=== PATIENT | male | born 1975 | race Caucasian/White ===

== ENCOUNTER 2023-06-03 20:09 | Emergency (ER) | payer BC, SELFPAY ==
[2023-06-03] VITALS (31 sets, daily range): BP systolic 100–174; BP diastolic 66–139; PULSE 68–103; RESP 14–26; TEMP 36.9; O2SAT 83–100; BMI 31.7
--- NOTE | 2023-06-03 20:28 | ECG_ITS ---
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
--- NOTE | 2023-06-03 20:29 | XR_ITS ---
The [address] [address] Patient Name: DEMIAN PEREZ MRN: [id number] date: 1975 Sex: M Assigned Patient Location: ER Current Patient Location: ER Accession/Order Number: [id number] Exam Date: 06/03/2023 20:50 Report Date: 06/03/2023 22:27 At the request of: JUAN M FLORES Procedure: XR chest 1V EXAM: XR chest 1V HISTORY: CP COMPARISON: Chest x-ray 09/28/2022 TECHNIQUE: Single frontal view chest x-ray FINDINGS: Large right pneumothorax occupying more than 50% of the right hemithorax with pleural separation of at least 10 cm. Mild leftward mediastinal or tracheal shift. Right lower lung atelectasis/collapse. No discrete acute bony or normality. Cardiac size is unremarkable. XR/XR chest 1V IMPRESSION: Large right pneumothorax with mild leftward mediastinal and tracheal shift. Finding is concerning for tension pneumothorax. Recommend close clinical attention. This important urgent impression finding was communicated to and acknowledged by Jacob Flores at 10:26 PM Eastern time 06/03/2023 by phone. The phone call was made by Nina Coffey. Electronically authenticated by: NINA COFFEY Date: 06/03/2023 22:27
--- NOTE | 2023-06-03 20:29 | ED.GENADUL1 ---
HPI - General Adult General Chief complaint: Chest Pain Stated complaint: CHEST PAIN Time Seen by Provider: 06/03/23 20:19 Source: patient Mode of arrival: Wheelchair History of Present Illness HPI narrative: 48-year-old male presents for back and abdominal pain. It started two hours ago on his right lateral back region. Now it's in the epigastric area. He does not actually have any chest pain. In September of this year he had an myocardial infarction and has two stents. He was sitting in a chair when it started and it's been continuous though waxing and waning. No vomiting or diarrhea. He had eaten some pork loin and potatoes and green beans about an hour before this started. He's never had a problem with his gallbladder. Related Data Allergies Allergy/AdvReac Type Severity Reaction Status Date / Time No Known Drug Allergies Allergy Verified 06/03/23 20:21 Review of Systems ROS Narrative A ten point review of systems is negative except as noted above. PFSH [facility] Medical History (Updated 06/04/23 @ 00:09 by Bright Pate MD) Myocardial infarction ?I21.9 - Acute myocardial infarction, unspecified (ICD-10) Surgical History (Updated 06/03/23 @ 20:36 by Diane Osullivan) H/O heart artery stent ?Z95.5 - Presence of coronary angioplasty implant and graft (ICD-10) Exam Narrative Exam Narrative: Nurses note and vital signs reviewed and patient is not hypoxic. General: The patient appears comfortable. His hips and knees are flexed and he is laying on his left side. Skin: Warm, dry, no pallor noted. There is no rash noted. Head: Normocephalic, atraumatic Eye: Normal conjunctiva, no drainage Ears, Nose, Mouth, and Throat: oral mucosa is moist. Nares patent. Cardiovascular: Regular Rate and Rhythm Respiratory: Patient is in no distress, no accessory muscle use, lungs are clear to auscultation, no wheezing, rales or rhonchi Back: non-tender, no bruise or rash. GI: mild tenderness to palpation in the epigastric area. No mass or distention. Musculoskeletal: The patient has no evidence of calf tenderness, no pitting edema, symmetrical pulses noted bilaterally Neurological: A&O, normal speech Psychiatric: Cooperative Constitutional Vital Signs, click to edit/add: Last Vital Signs Temp 98.4 F 06/03/23 21:37 Pulse 77 06/03/23 23:50 Resp 16 06/03/23 23:50 BP 141/102 H 06/03/23 22:54 Pulse Ox 100 06/03/23 23:50 O2 Del Method Nasal Cannula, Nonrebreather 06/03/23 23:10 O2 Flow Rate 15 06/03/23 23:10 Course Vital Signs Vital signs: Vital Signs Pulse Rate 100 H 06/03/23 20:13 Respiratory Rate 24 06/03/23 20:13 Blood Pressure 174/139 H 06/03/23 20:13 Pulse Oximetry 98 06/03/23 20:13 Oxygen Delivery Method Room Air 06/03/23 20:13 Temperature 98.4 F 06/03/23 21:37 Pulse Rate 77 06/03/23 23:50 Respiratory Rate 16 06/03/23 23:50 Blood Pressure 141/102 H 06/03/23 22:54 Pulse Oximetry 100 06/03/23 23:50 Oxygen Delivery Method Nasal Cannula, Nonrebreather 06/03/23 23:10 Oxygen Delivery Flow Rate 15 06/03/23 23:10 Medical Decision Making MDM Narrative Medical decision making narrative: the patient has right-sided pneumothorax, spontaneous. There is no history of trauma and he does not have chronic obstructive pulmonary disease. The radiologist report suggested tension pneumothorax but clinically he does not have a tension pneumothorax. He had been home with this for about two hours before coming in. Chest tube has been placed and his O2 sat remains normal and his lung appears fully inflated. He will be transferred to [facility] where he is accepted by Dr Kitchen. the patient is stable for transfer and agreeable and this is thoroughly discussed with his girlfriend as well. The cause of the pneumothorax is uncertain. He has not had one previously. Differential Diagnosis Differential Diagnosis: myocardial infarction, pneumothorax, pancreatitis, gallbladder disease Lab Data Lab results reviewed: Yes I reviewed the patient's lab results Labs: Lab Results 06/03/23 06/03/23 Range/Units 20:28 21:58 WBC 7.8 (4.0-11.0) 10^3/uL RBC 5.05 (4.70-6.10) 10^6/uL Hgb 16.1 (14.0-18.0) g/dL Hct 47.7 (42.0-54.0) % MCV 94.5 H (80.0-94.0) fL MCH 31.9 (25.9-34.0) pg MCHC 33.8 (29.9-35.2) g/dL RDW 13.2 (11.0-15.0) % Plt Count 237 (150-450) 10^3/uL MPV 10.4 (9.5-13.5) fL Neut % (Auto) 61.4 (43.0-75.0) % Lymph % (Auto) 26.6 (20.5-60.0) % [place] % (Auto) 8.6 (1.7-12.0) % Eos % (Auto) 2.1 (0.9-7.0) % Baso % (Auto) 0.9 (0.2-2.0) % Neut # (Auto) 4.8 (1.4-6.5) 10^3/uL Lymph # (Auto) 2.1 (1.2-3.8) 10^3/uL [place] # (Auto) 0.7 (0.3-0.8) 10^3/uL Eos # (Auto) 0.2 (0.0-0.7) 10^3/uL Baso # (Auto) 0.1 (0.0-0.1) 10^3/uL Abs Immat Gran (auto) 0.03 (0.00-0.03) 10^3/uL Imm/Tot Granulo (auto) 0.4 (0.0-0.5) % D-Dimer <0.19 (<=0.59) mg/L FEU Sodium 137 (136-145) mmol/L Potassium 4.2 (3.5-5.1) mmol/L Chloride 101 (98-107) mmol/L Carbon Dioxide 31.9 (21.0-32.0) mmol/L Anion Gap 8.3 BUN 15.0 (7.0-18.0) mg/dL Creatinine 1.84 H (0.70-1.30) mg/dL Est GFR ( Amer) 47 L (>=60) Est GFR (Non-Af Amer) 39 L (>=60) BUN/Creatinine Ratio 8.2 Glucose 217 H (74-106) mg/dL Calcium 8.6 (8.5-10.1) mg/dL Total Bilirubin 0.6 (0.2-1.0) mg/dL Direct Bilirubin 0.1 (0.0-0.2) mg/dL AST 12 L (15-37) U/L ALT 27 (16-63) U/L Alkaline Phosphatase 67 (46-116) U/L Troponin I High Sens 12.8 13.7 (4.0-76.1) pg/mL Total Protein 6.6 (6.4-8.2) g/dL Albumin 3.7 (3.4-5.0) g/dL Globulin 2.9 g/dL Albumin/Globulin Ratio 1.3 Amylase 60 (25-115) U/L Lipase 73.0 (16.0-77.0) U/L Imaging Data Chest x-ray: My impression: 2nd chest x-ray my interpretation shows essentially complete inflation of the lung. Radiologist's impression: Procedure: XR chest 1V EXAM: XR chest 1V HISTORY: CP COMPARISON: Chest x-ray 09/28/2022 TECHNIQUE: Single frontal view chest x-ray FINDINGS: Large right pneumothorax occupying more than 50% of the right hemithorax with pleural separation of at least 10 cm. Mild leftward mediastinal or tracheal shift. Right lower lung atelectasis/collapse. No discrete acute bony or normality. Cardiac size is unremarkable. IMPRESSION: Large right pneumothorax with mild leftward mediastinal and tracheal shift. Finding is concerning for tension pneumothorax. Recommend close clinical attention. This important urgent impression finding was communicated to and acknowledged by Jacob Pate at 10:26 PM Eastern time 06/03/2023 by phone. The phone call was made by Nina Coffey. Electronically authenticated by: NINA COFFEY Date: 06/03/2023 22:27 ECG Data Attestation: I personally reviewed and interpreted this ECG as follows: (EKG on my interpretation shows sinus rhythm without acute change in a rate of 95.) Critical Care Time Critical Care Time Critical Care Time: Yes Total Critical Care Time: 35 Attestation: Due to the high probability of sudden and clinically significant deterioration in the patient's condition he/she required the highest level of my preparedness to intervene urgently I provided critical care time including documentation time, medication orders and management, reevaluation, vital sign assessment, ordering and reviewing of lab tests, ordering and reviewing of x-ray studies, and admission orders. Aggregate critical care time is 35 minutes including only time during which I was engaged in work directly related to his/her care and did not include time spent treating other patients simultaneously. Discharge Plan Discharge Chief Complaint: Chest Pain Clinical Impression: Pneumothorax Patient Disposition: [facility] Time of Disposition Decision: 00:09 Discharge Location: [facility] Condition: Good Mode of Transportation: EMS Procedures ED Procedure Instructions Procedures Procedures: The following procedure was performed by me. Right chest tube placed. Local infiltration was carried out with one percent lidocaine to the right midaxillary line. The area was prepped with Betadine ?3 and draped sterilely. The patient was also given IV Versed and morphine which resulted in a good amount of relaxation. a small skin incision was made and then curved hemostats were used to enter the thorax. Large peralta of air then ensued and nine Georgian tube was then placed and secured thoroughly in place. The patient tolerated the procedure well. He did not become hypotensive or hypoxic at any point. Post procedure x-ray shows good lung inflation on my interpretation.
--- NOTE | 2023-06-03 20:33 | PC.NURSE ---
Pt reports pain started in back and radiated to chest. Pt points to epigastric area when asked and denies feeling nauseated. Took 1 nitro at home but this did not help. Pt has cardiac history and cardiac stents, ER DR assessment complete and orders rec'vd
[2023-06-03] MEDS: MORPHINE SULFATE 4 MG/ML VIAL IV ×2 (20:34→23:35)
[2023-06-03 20:48] LABS: Basophils Absolute Auto 0.1 10^3/uL (0.0-0.1); Basophils Percent Auto 0.9 % (0.2-2.0); Eosinophils Absolute Auto 0.2 10^3/uL (0.0-0.7); Eosinophils Percent Auto 2.1 % (0.9-7.0); Hematocrit 47.7 % (42.0-54.0); Hemoglobin 16.1 g/dL (14.0-18.0); Immature Granulocytes Abs Auto 0.03 10^3/uL (0.00-0.03); Immature Granulocytes Pct Auto 0.4 % (0.0-0.5); Lymphocytes Absolute Auto 2.1 10^3/uL (1.2-3.8); Lymphocytes Percent Auto 26.6 % (20.5-60.0); Mean Corpuscular HGB Conc 33.8 g/dL (29.9-35.2); Mean Corpuscular Hemoglobin 31.9 pg (25.9-34.0); Mean Corpuscular Volume 94.5 fL (80.0-94.0); Mean Platelet Volume 10.4 fL (9.5-13.5); Monocytes Absolute Auto 0.7 10^3/uL (0.3-0.8); Monocytes Percent Auto 8.6 % (1.7-12.0); Neutrophils Absolute Auto 4.8 10^3/uL (1.4-6.5); Neutrophils Percent Auto 61.4 % (43.0-75.0); Platelet Count 237 10^3/uL (150-450); Red Blood Count 5.05 10^6/uL (4.70-6.10); Red Cell Distribution Width 13.2 % (11.0-15.0); White Blood Count 7.8 10^3/uL (4.0-11.0)
[2023-06-03 21:03] LABS: Alanine Aminotransferase 27 U/L (16-63); Albumin Globulin Ratio 1.3; Albumin Level 3.7 g/dL (3.4-5.0); Alkaline Phosphatase 67 U/L (46-116); Amylase 60 U/L (25-115); Aspartate Amino Transferase 12 U/L (15-37); Bilirubin Direct 0.1 mg/dL (0.0-0.2); Bilirubin Total 0.6 mg/dL (0.2-1.0); Globulin 2.9 g/dL; Total Protein 6.6 g/dL (6.4-8.2)
[2023-06-03 21:05] LABS: Anion Gap 8.3; BUN Creatinine Ratio 8.2; Calcium 8.6 mg/dL (8.5-10.1); Carbon Dioxide 31.9 mmol/L (21.0-32.0); Chloride 101 mmol/L (98-107); Estimated GFR (African America 47 (>=60); Estimated GFR (Non-African Ame 39 (>=60); Glucose 217 mg/dL (74-106); Potassium 4.2 mmol/L (3.5-5.1); Sodium 137 mmol/L (136-145); Troponin I High Sensitivity 12.8 pg/mL (4.0-76.1)
[2023-06-03 22:07] LABS: D Dimer <0.19 mg/L FEU (<=0.59)
[2023-06-03 22:26] LABS: Troponin I High Sensitivity 13.7 pg/mL (4.0-76.1)
--- NOTE | 2023-06-03 23:21 | XR_ITS ---
[address] [address] Patient Name: DEMIAN PEREZ MRN: [id number] date: 1975 Sex: M Assigned Patient Location: ER Current Patient Location: ED.MAIN Accession/Order Number: [id number] Exam Date: 06/03/2023 23:20 Report Date: 06/04/2023 01:14 At the request of: JUAN M FLORES Procedure: XR chest 1V EXAM: XR chest 1V HISTORY: post chest tube COMPARISON: Chest x-ray 06/03/2023 TECHNIQUE: Single frontal view chest x-ray FINDINGS: Interval placement right chest tube distal tip at the right apical region. Marked interval improvement with the previously seen right pneumothorax barely perceptible on current exam. Tiny trace right apical pneumothorax less than 3 mm pleural separation. No mediastinal or tracheal shift. No lung consolidation, large pleural effusions, or acute bony abnormality. Cardiac size is unremarkable. XR/XR chest 1V IMPRESSION: Interval placement right chest tube distal tip at the right apical region. Marked interval improvement. The previously seen right pneumothorax is barely perceptible on current exam. No mediastinal or tracheal shift. Electronically authenticated by: NINA LOPEZ Date: 06/04/2023 01:14
--- NOTE | 2023-06-03 23:47 | PC.NURSE ---
Pt moved to room 5 for chest tube placement Dr. Herlinda nicholson right chest tube attached to a Thoraseal vent Per Dr. Pate set to 20 on water suction Pt very anxious at time of set up Pt given 4 of versed initially After initial cut by Dr. Pate pt still talking and moving Several nurses were at bedside, this nurse, Tianna RN, and Britany RN paint supervisor as well as Maegan RN and Marleny RN were in and out bringing medications as ordered by Dr. Pate Pt given 4 more of versed after numerous attempts to calm pt down and encouraging him to stop moving his extremities During insertion pt still awake, alert, talking and moving though he was repeatedly directed to stop movement and talking Emotional support provided to pt Another 2 of Versed given per Dr. Pate at bedside Pt still moving and talking, another 2 of Versed given followed by 4 of Morphine and zofran Procedure complete, Chest tubing attached to bed sheet and the Thoraseal vent secured to bedside Pt has remained A&O, GCS 15 vitals have remained stable, pt placed on NRB 15L to assist in relaxing him Another 4 of Morphine given Pt still complaining of extreme pain and rolling in bed This nurse, Britany RN and pt's remain at bedside
[2023-06-04] VITALS: PULSE 99; RESP 19; O2SAT 100
[2023-06-04] MEDS: MIDAZOLAM HCL 5 MG/ML VIAL 10 MG IV
[2023-06-04] MEDS: ONDANSETRON PF 4 MG/2 ML VIAL IV (00:01)
[2023-06-04 00:10] VITALS: PULSE 89; RESP 20; O2SAT 96
[2023-06-04 00:20] VITALS: PULSE 87; RESP 19; O2SAT 92
[2023-06-04 00:28] VITALS: BP 133/78; PULSE 81; RESP 16
[2023-06-04 00:30] VITALS: PULSE 78; RESP 16; O2SAT 100
[2023-06-04] MEDS: HYDROMORPHONE HCL 2 MG/ML VIAL 1 MG IV (00:30)
== END 2023-06-04 01:19 | disposition short-term general hospital (02) ==
PROVIDERS: Emergency Provider Emergency Medicine; PCP Internal Medicine
DX: J93.9 Pneumothorax, unspecified (principal); Z95.5 Presence of coronary angioplasty implant and graft; I25.2 Old myocardial infarction
CPT/HCPCS: 32551; 36415; 71045; 80048; 80076; 82150; 83690; 84484; 85025; 85378; 93005; 96374; 96375; 96376; 99291; J1170

== ENCOUNTER 2023-06-12 16:40 | Outpatient (OUT) | payer BC, SELFPAY ==
--- NOTE | 2023-06-12 | XR_ITS ---
The [address] [address] Patient Name: DEMIAN PEREZ MRN: [id number] date: 1975 Sex: M Assigned Patient Location: [facility] Current Patient Location: [facility] Accession/Order Number: [id number] Exam Date: 06/12/2023 21:20 Report Date: 06/12/2023 22:21 At the request of: REINALDO TINEO Procedure: XR chest 2V EXAM: XR chest 2V REASON FOR EXAM: Male, 48 years, pneumothorax. TECHNIQUE: PA and lateral views of the chest are performed. COMPARISON: 06/03/2023. FINDINGS: There is no focal consolidation. There is a small right apical pneumothorax, with approximately 1.5 cm separation between the visceral and parietal pleura. Normal size heart. No mediastinal shift. Normal visualized pulmonary arteries. Normal visualized aortic arch and descending thoracic aorta. Normal visualized thoracic spine. Normal visualized ribs, clavicles, and shoulders. There is no demonstrated abnormality of the visualized soft tissue structures of the upper abdomen. XR/XR chest 2V IMPRESSION: Small right apical pneumothorax. I spoke with the x-ray technologist to perform the examination, as this patient was listed as an outpatient. She confirmed that the patient was an outpatient. I obtain the patient's phone number and discussed this finding with him and his at 10:15 PM. He has a follow-up appointment with his physician early tomorrow morning. He is currently asymptomatic. I stressed to the patient that should symptoms occur like worsening shortness of breath or chest pain, he should travel to the emergency department. Electronically authenticated by: LATOYA SELLERS Date: 06/12/2023 22:21
== END 2023-06-12 16:41 | disposition home or self-care (01) ==
PROVIDERS: PCP Internal Medicine; Visit Provider Internal Medicine Sleep Medicine
DX: J93.9 Pneumothorax, unspecified (principal)
CPT/HCPCS: 71046

== ENCOUNTER 2023-09-24 21:10 | Emergency (ER) | payer OTHER, SELFPAY ==
--- OUTSIDE RECORDS SUMMARY | 2023-09-24 21:17 | XMS_ITS | CCD ---
Author Name Unknown Address [address] [place] [address] Organization [facility] Care Team Providers Care Manager Placement Name Role Phone MARISOL ROBERTSONIL Admitting Unavailable JENNY ROBERTSON Attending Unavailable JIAN HOLLAND Referring Unavailable YANICK HAQUE Primary Care Unavailable JENNY ROBERTSON Surgeon Unavailable HI Procedure Practitioner Unavailab le HI Procedure Practitioner Unavailab DONAL Lara Surgeon Unavailable Unavailable Primary Care Provider UnavailYANICK Velasquez Primary Care Physician [phone] NILLMercedez Attending Unavailable NILL, Mercedez Huffman Attending Unavailable SHABNAM PROVIDERYANICK Referring Unavaila ble NILL, Mercedez Huffman Attending Unavailable NILL, Mercedez Huffman Attending Unavailable Yanick Haque Unavailable Unavailable Unavailable NILL ., DR NEWSOME Admitting Unavailable NILL ., DR NEWSOME Attending Unavailable NILL ., DR NEWSOME Consulting Unavailable BALL, DR VILLANUEVA Primary Care Unavailable MADHU, ROSAS HAMMER Consulting UnaCANDIDA Disla Consulting Unavailable NILL ., DR NEWSOME Admitting Unavailable NILL ., DR NEWSOME Attending Unavailable NILL ., DR NEWSOME Consulting Unavailable SHABNAM, DR VILLANUEVA Primary Care Unavailable SAMIA, DR DANIELLA Huffman Admitting Unavailable SAMIA, DR DANIELLA Huffman Attending Unavailable SAMIA, DR DANIELLA Huffman Consulting Unavailable SHABNAM, DR VILLANUEVA Primary Care Unavailable NOMAN ALVARES Consulting Unavailable SKYLER ., DR VILLAR Admitting Unavailable SHABNAM, DR VILLANUEVA Primary Care Unavailable SKYLER ., DR VILLAR Attending Unavailable SKYLER ., DR VILLAR Consulting Unavailable ROBBIE ATKINSON Consulting Unavailable Keon, Dr. Rosas Wen Attending Belle Bales, Ms. Fany Casiano Referring Lata Haque, Dr. Yanick Puente Primary Care Lata Bales, Ms. Fany Casiano Attending Lata Bales, Ms. Fany Casiano Referring Lata Haque, Dr. Yanick Puente Primary Care Lata Haque, Dr. Yanick Puente Primary Care DO Yanick Christianson Primary Care Provider MD Baldemar Savage Admit Provider LEO Daley Other Provider MD David Holm Other Provider MD Bladimir Ramires Other Provider [phone] MD Leonard Dennis Other Provider [phone] DO Anjum Gilbert Other Provider MD Lory Arellano Other Provider [phone] MD Chapin Negro Other Provider MD Paresh Osorio Other Provider DO Jacob Amaya Other Provider DO Jose Phillips Attending Provider MD David Holm Attending Provider Peter Holmal Unavailable David Holm Admitting Unavailable David Holm Attending Unavailable Yanick Haque Primary Care Unavailable Ramu Espitia Admitting Unavailable Ramu Espitia Attending Unavailable Yanick Haque Primary Care Unavailable Jose Phillips Attending UnavailYanick Velasquez Primary Care Unavailable Baldemar Savage Admitting Unavailable Nasrin Daley Consulting Unavailable David Holm Consulting Unavailable Bladimir Ramires Consulting UnavailLeonard Medley Consulting Unavailable Anjum Gilbert Consulting UnavailLory Pink Consulting Unavailable Chapin Negro Consulting Unavailable Paresh Osorio Consulting Unavailable Jacob Amaya Consulting Unavailable Medications Current Medications Medication Drug Class(es) Dates Sig (Normalized) Sig (Original) acetaminophen 325 mg / HYDROcodone bitartrate 10 mg oral tablet (2 sources) Opioid Agonist Start: 06-07-2023 take 1 tablet by mouth every four hours Hydrocodone-Acetam inophen Active 1 TAB PO Q4H 10 3 June 07, 2023 anastrozole 1 mg oral tablet (3 sources) Aromatase Inhibitor Start: 03-26-2021 take 1 tablet by mouth once daily Arimidex 1 mg Tab mg tab(s), Oral, Daily, Refills(s) 0 Start Date: 03/26/21 Status: Ordered aspirin 81 mg chewable tablet (6 sources) Platelet Aggregation Inhibitor, Nonsteroidal Anti-inflammatory Drug Start: 09-29-2022 take 1 tablet by mouth once daily Aspirin (Children's Aspirin) 81 mg Tablet,Chewable Active 81 MG PO Daily September 29, 2022 1:00am atorvastatin 80 mg oral tablet (6 sources) HMG-CoA Reductase Inhibitor Start: 09-29-2022 take 80 mg by mouth once daily in the evening Atorvastatin Active 80 MG PO Every evening September 29, 2022 1:00am clonazePAM 1 mg oral tablet (3 sources) Benzodiazepine Start: 06-29-2022 take 1 tablet by mouth once daily as needed for anxiety clonazepam 1 mg Tab 1 mg = 1 tab(s), Oral, Daily, PRN Anxiety, Refills(s) 0 Start Date: 06/29/22 Status: Ordered metFORMIN hydrochloride 500 mg oral tablet (3 sources) Biguanide Start: 06-07-2023 take 500 mg by mouth once daily Metformin Active 500 MG PO Daily June 07, 2023 12:00am 24 hr metoprolol succinate 25 mg extended release oral tablet (5 sources) beta-Adrenergic [place] Start: 09-29-2022 take 1 tablet by mouth once daily Metoprolol Succinate (Toprol Xl) 25 mg tablet extended release 24 hr Active 25 MG PO Daily September 29, 2022 1:00am nitroglycerin 0.4 mg sublingual tablet (5 sources) Nitrate Vasodilator Start: 09-29-2022 Nitroglycerin Active 0.4 MG SUBLINGUAL Q5M September 29, 2022 1:00am tadalafil 20 mg oral tablet (3 sources) Phosphodiesterase 5 Inhibitor Start: 03-26-2021 Cialis 20 mg Tab 20 mg = 1 tab(s), Oral, As Directed, # 30 tab(s), Refills(s) 2, Pharmacy: [facility] [id number], 192, cm, 03/26/21 10:22:00 EDT, Height/Length Dosing, 118, kg, 03/26/21 10:22:00 EDT, Weight Dosing Start Date: 03/26/21 Status: Ordered testosterone cypionate 200 mg/mL intramuscular solution (3 sources) Start: 03-26-2021 testosterone cypionate 200 mg/mL intramuscular solution .75, IntraMuscular, Refills(s) 0 Start Date: 03/26/21 Status: Ordered ticagrelor 90 mg oral tablet (6 sources) Start: 09-29-2022 take 1 tablet by mouth twice daily Ticagrelor (Brilinta) 90 mg Tablet Active 90 MG PO Twice daily 180 90 September 29, 2022 1:00am traZODone hydrochloride 50 mg oral tablet (2 sources) Serotonin Reuptake Inhibitor Start: 06-07-2023 take 50 mg by mouth once daily at bedtime Trazodone Active 50 MG PO Daily at bedtime June 07, 2023 12:00am valsartan 160 mg oral tablet (6 sources) Angiotensin 2 Receptor [place] Start: 06-13-2023 Valsartan 160 MG as directed Orally May, Active Start: 09-29-2022 take 80 mg by mouth once daily at bedtime Valsartan Active 80 MG PO Daily at bedtime 60 September 29, 2022 1:00am take 2 tablets by mo ut at bedtime Valsartan 40 MG Oral Tablet TAKE 2 TABLET Bedtime Quantity: 0 Refills: 0 Ordered: 05-Oct-2022 DO Active Completed/Discontinued Medications Medication Drug Class(es) Dates Sig (Normalized) Sig (Original) EPINEPHrine 0.01 mg/ml / lidocaine hydrochloride 10 mg/ml injectable solution (1 source) Antiarrhythmic, alpha-Adrenergic Agonist, beta-Adrenergic Agonist, Catecholamine, Amide Local Anesthetic Start: 11-07-2021 End: 11-07-2021 lidocaine-EPINEPH rine 1 %-1:[id number] injection 20 mL Problems Active Problems Problem Classification Problem Date Documented Date Episodic/Chronic Abdominal hernia (3 sources) Umbilical hernia 03-26-2021 Episodic Acute myocardial infarction (7 sources) Myocardial infarction; Translations: [Acute myocardial infarction of unspecified site, episode of care unspecified] Onset: 09-28-2022 09-28-2022 Chronic Anxiety disorders (3 sources) Generalized anxiety disorder 03-18-2021 Chronic Chronic obstructive pulmonary disease and bronchiectasis (1 source) Mucopurulent chronic bronchitis; Translations: [Mucopurulent chronic bronchitis] Chronic Coronary atherosclerosis and other heart disease (10 sources) Coronary atherosclerosis; Translations: [Coronary atherosclerosis of [place] coronary artery] Onset: 09-28-2022 09-29-2022 Chronic Coronary atherosclerosis and other heart disease (2 sources) Stented coronary artery; Translations: [Presence of coronary angioplasty implant and graft] 09-28-2022 Episodic Diabetes mellitus with complications (1 source) Type 2 diabetes mellitus; Translations: [Type 2 diabetes mellitus with hyperglycemia] Chronic Disorders of lipid metabolism (3 sources) Mixed hyperlipidemia; Translations: [Mixed hyperlipidemia] Chronic Essential hypertension (2 sources) Hypertensive disorder; Translations: [Unspecified essential hypertension] Chronic Mycoses (6 sources) Candidiasis of skin; Translations: [Penile candidiasis] 03-26-2021 Episodic Nonspecific chest pain (3 sources) Chest pain, unspecified; Translations: [CHEST PAIN UNSPECIFIED] Onset: 09-28-2022 Episodic Open wounds of head; neck; and trunk (1 source) Facial laceration ; Translations: [Laceration without foreign body of other part of head, initial encounter] Episodic Other and unspecified benign neoplasm (2 sources) Benign neoplasm of sigmoid colon; Translations: [Benign neoplasm of sigmoid colon] Onset: 09-02-2022 Episodic Other endocrine disorders (3 sources) Male hypogonadism 03-26-2021 Chronic Other hereditary and degenerative nervous system conditions (3 sources) Restless legs 06-29-2022 Chronic Other male genital disorders (3 sources) Impotence 03-26-2021 Chronic Other nutritional; endocrine; and metabolic disorders (3 sources) Body mass index 30+ - obesity 07-05-2022 Chronic Other nutritional; endocrine; and metabolic disorders (3 sources) Obesity; Translations: [Obesity, unspecified] Chronic Pleurisy; pneumothorax; pulmonary collapse (5 sources) Pneumothorax; Translations: [Pneumothorax, unspecified] 06-04-2023 Episodic Pleurisy; pneumothorax; pulmonary collapse (2 sources) Pleurisy; pneumothorax; pulmonary collapse; Translations: [Primary spontaneous pneumothorax] Onset: 06-04-2023 Screening and history of mental health and substance abuse codes (4 sources) Ex-smoker; Translations: [Personal history of tobacco use] Onset: 10-04-2022 Episodic Comment on above: Quit in 2004; Unclassified (1 source) Patient encounter status 07-10-2022 Unclassified (1 source) CONTACT W/AND (SUSP) EXPOS COVID-19; Translations: [CONTACT W/AND (SUSP) EXPOS COVID-19] Onset: 07-30-2022 Past or Other Problems Problem Classification Problem Date Documented Da te Episodic/Chronic E Codes: Struck by; against (1 source) Striking against or struck by other objects, initial encounter; Translations: [STRIKING AGNST/STRUCK OTH OBJ INIT] Onset: 02-01-2022 Episodic Immunizations and screening for infectious disease (2 sources) Encounter for immunization; Translations: [Contact with and (suspected) exposure to other viral communicable diseases] Onset: 02-01-2022 Resolved: 01-26-2021 Episodic Open wounds of extremities (4 sources) Laceration without foreign body of right forearm, initial encounter; Translations: [LACERATION W/O FB RT FORARM INITIAL] Onset: 01-29-2022 Episodic Other and unspecified benign neoplasm (1 source) Benign neoplasm of sigmoid colon; Translations: [BENIGN NEOPLASM OF SIGMOID COLON] Onset: 08-04-2022 Episodic Other screening for suspected conditions (not mental disorders or infectious disease) (4 sources) Encounter for screening for malignant neoplasm of colon; Translations: [ENC SCREEN MALIG NEOPLASM COLON] Onset: 07-29-2022 Episodic Residual codes; unclassified (1 source) Periodic limb movement disorder; Translations: [Periodic limb movement disorder] Resolved: 01-26-2021 Chronic Residual codes; unclassified (4 sources) Reduced libido; Translations: [Decreased libido] Resolved: 01-26-2021 03-18-2021 Episodic Superficial injury; contusion (1 source) Contusion of other part of head, initial encounter; Translations: [CONTUS OTH PRT HEAD INITIAL ENCNTR] Onset: 02-01-2022 Episodic Results Test Name Value Interpretation Reference Range Facility XR chest 2V*on 06-19-2023 XR chest 2V* [facility] Main [address] [address] XRay Report Signed Patient: Demian Martinez MR#: [id number] 68 : 1975 Acct:[id number] Age/Sex: 48 / M ADM Date: 06/19/23 Loc: XD Room: Type: [facility] Attending Dr: David Holm MD Copies to: David Holm MD Ordering Provider: David Holm MD Date of Service: 06/19/23 XR/XR chest 2V*: pneumothorax Chest 2 views CLINICAL HISTORY: Follow-up right pneumothorax. COMPARISON: Chest 06/12/2023 FINDINGS: Heart appears normal in size. The patient's right-sided pneumothorax has resolved. No consolidation, pleural effusion or free air. XR/XR chest 2V* IMPRESSION: THE PATIENT'S RIGHT-SIDED PNEUMOTHORAX HAS RESOLVED. Impression dictated by: Bipin Mosquera Jr., D.O.06/19/2023 1:35 PM Dictation Location: [place] [address] Transcribed By: ROBE 06/19/23 1335 Dictated By: Bipin Mosquera Jr, DO 06/19/23 1334 Signed By: 06/19/[address] [facility] Alanine aminotransferase [En zymatic activity/volume] in Serum or PlasmaOrdered By: Jose Phillips on 06-07-2023 ALT [Catalytic activity/Vol] 14 U/L 7-52 [facility] Albumin [Mass/volume] in Ser um or Plasma by Bromocresol green (BCG) dye binding methoOrdered By: Jose hPillips on 06-07-2023 Albumin BCG dye [Mass/Vol] 3.7 g/dL 3.5-5.7 [facility] Alkaline phosphatase [Enzyma tic activity/volume] in Serum or PlasmaOrdered By: Jose Phillips on 06-07-2023 ALP [Catalytic activity/Vol] 55 U/L 34-104 [facility] Aspartate aminotransferase [ Enzymatic activity/volume] in Serum or PlasmaOrdered By: Jose Phillips on 06-07-2023 AST [Catalytic activity/Vol] 13 U/L 13-39 [facility] Basophils Auto (Bld) [#/Vol] Ordered By: Jose Phillips on 06-07-2023 Basophils (Bld) [#/Vol] 0.1 10*3/uL 0.0-0.2 [facility] Basophils/100 WBC Auto (Bld) Ordered By: Jose Phillips on 06-07-2023 Basophils/100 WBC (Bld) 0.8 % . [facility] Bilirubin.total [Mass/volume ] in Serum or PlasmaOrdered By: Jose Phillips on 06-07-2023 Bilirubin [Mass/Vol] 0.6 mg/dL 0.3-1.0 [facility] Calcium [Mass/volume] in Ser um or PlasmaOrdered By: Jose Phillips on 06-07-2023 Calcium [Mass/Vol] 8.6 mg/dL 8.6-10.3 [facility] Carbon dioxide, total [Moles /volume] in Serum or PlasmaOrdered By: Jose Phillips on 06-07-2023 CO2 [Moles/Vol] 27.5 mmol/L 21.0-31.0 [facility] Chloride [Moles/volume] in S ankit or PlasmaOrdered By: Jose Phillips on 06-07-2023 Chloride [Moles/Vol] 102 mmol/L 98-107 [facility] Complete Blood Count Auto Di ffon 06-07-2023 Basophils (Bld) [#/Vol] 0.1 10*3/uL Normal 0.0-0.2 [facility] Comment on above: Result Comment: PERF ORMED BY: [place] [address] PATHOLOGIST EPIC BEACON ANALYST RACHEL MCCORMICK M.D. Performed By: #### C BC, BMP #### [facility] [address] Basophils/100 WBC (Bld) 0.8 % Normal . [facility] Comment on above: Performed By: #### C BC, BMP #### [facility] [address] Eosinophils (Bld) [#/Vol] 0.2 10*3/uL Normal 0.0-0.45 [facility] Comment on above: Performed By: #### C BC, BMP #### [facility] [address] Eosinophils/100 WBC (Bld) 3.0 % Normal . [facility] Comment on above: Performed By: #### C BC, BMP #### [address] Erythrocyte distribution width (RBC) [Ratio] 14.0 % Normal 12.0-14.8 [facility] Comment on above: Performed By: #### C BC, BMP #### [address] Hematocrit (Bld) [Volume fraction] 46.7 % Normal 38.8-50.0 [facility] Comment on above: Performed By: #### C BC, BMP #### [address] Hemoglobin (Bld) [Mass/Vol] 16.2 g/dL Normal 13.0-17.0 [facility] Comment on above: Performed By: #### C BC, BMP #### [address] Lymphocytes (Bld) [#/Vol] 2.4 10*3/uL Normal 1.00-4.8 [facility] Comment on above: Performed By: #### C BC, BMP #### [address] Lymphocytes/100 WBC (Bld) 31.6 % Normal . [facility] Comment on above: Performed By: #### C BC, BMP #### [place] [address] [place] MCH (RBC) [Entitic mass] 32.1 pg Normal 27.5-35.2 [facility] Comment on above: Performed By: #### C BC, BMP #### [address] MCV (RBC) [Entitic vol] 92.5 fL Normal 83.5-101 [facility] Comment on above: Performed By: #### C BC, BMP #### [address] [address] [place] Mean Corpuscular HGB Conc 34.7 g/dL Normal 32.5-35.6 [facility] Comment on above: Performed By: #### C BC, BMP #### [facility] [address] Monocytes (Bld) [#/Vol] 0.7 10*3/uL Normal 0.0-0.8 [facility] Comment on above: Performed By: #### C BC, BMP #### [address] Monocytes/100 WBC (Bld) 8.8 % Normal . [facility] Comment on above: Performed By: #### C BC, BMP #### [address] Neutrophils (Bld) [#/Vol] 4.2 10*3/uL Normal 1.8-7.7 [facility] Comment on above: Performed By: #### C BC, BMP #### [address] Neutrophils/100 WBC (Bld) 55.8 % Normal . [facility] Comment on above: Performed By: #### C BC, BMP #### [address] NRBC% 0.2 /100{WBC} Normal 0-0.5 [facility] Comment on above: Performed By: #### C BC, BMP #### [address] Platelet mean volume (Bld) [Entitic vol] 8.5 fL Normal 6.6-10.1 [facility] Comment on above: Performed By: #### C BC, BMP #### [place] [address] [place] Platelets (Bld) [#/Vol] 183 10*3/uL Normal 150-450 [facility] Comment on above: Performed By: #### C BC, BMP #### [place] [address] [place] RBC (Bld) [#/Vol] 5.05 10*6/uL Normal 3.90-5.60 [facility] Comment on above: Performed By: #### C BC, BMP #### [address] WBC (Bld) [#/Vol] 7.5 10*3/uL Normal 4.1-10.5 [facility] Comment on above: Performed By: #### C BC, BMP #### [address] Comprehensive Metabolic Pane kike 06-07-2023 Albumin [Mass/Vol] 3.7 g/dL Normal 3.5-5.7 [facility] Comment on above: Performed By: #### C BC, BMP #### [address] Albumin/Globulin [Mass ratio] 1.9 {ratio} Normal [facility] Comment on above: Performed By: #### C BC, BMP #### [address] ALP [Catalytic activity/Vol] 55 U/L Normal 34-104 [facility] Comment on above: Performed By: #### C BC, BMP #### [address] ALT [Catalytic activity/Vol] 14 U/L Normal 7-52 [facility] Comment on above: Performed By: #### C BC, BMP #### [address] Anion gap [Moles/Vol] 10.2 mmol/L Normal 6.0-15.0 [facility] Comment on above: Performed By: #### C BC, BMP #### [address] AST [Catalytic activity/Vol] 13 U/L Normal 13-39 [facility] Comment on above: Performed By: #### C BC, BMP #### [address] Bilirubin [Mass/Vol] 0.6 mg/dL Normal 0.3-1.0 [facility] Comment on above: Performed By: #### C BC, BMP #### [facility] [address] Calcium [Mass/Vol] 8.6 mg/dL Normal 8.6-10.3 [facility] Comment on above: Performed By: #### C BC, BMP #### [facility] [address] Chloride [Moles/Vol] 102 mmol/L Normal 98-107 [facility] Comment on above: Performed By: #### C BC, BMP #### [facility] [address] CO2 [Moles/Vol] 27.5 mmol/L Normal 21.0-31.0 [facility] Comment on above: Performed By: #### C BC, BMP #### [facility] [address] Creatinine [Mass/Vol] 1.48 mg/dL High 0.70-1.30 [facility] Comment on above: Performed By: #### C BC, BMP #### [facility] [address] Creatinine Clr Calc Pharmacy 83.11 [facility] Comment on above: Result Comment: PERF ORMED BY: [place] [address] PATHOLOGIST EPIC BEACON ANALYST RACHEL MCCORMICK M.D. Performed By: #### C BC, BMP #### [address] GFR/1.73 sq M.predicted MDRD (S/P/Bld) [Vol rate/Area] 57.281 mL/min/{1.73_m2} [facility] Comment on above: Performed By: #### C BC, BMP #### [facility] [address] Globulin (S) [Mass/Vol] 1.9 g/dL Normal [facility] Comment on above: Performed By: #### C BC, BMP #### [facility] [address] [place] [address] [place] Glucose [Mass/Vol] 183 mg/dL High 70-100 [facility] Comment on above: Result Comment: [place] Glucose Reference Range is dependent on time and content of last meal. Glucose of more than 200 mg/dL in a nonstressed, ambulatory subject supports the diagnosis of Diabetes Mellitus. ADA recommended reference range Performed By: #### C BC, BMP #### [facility] [address] Potassium [Moles/Vol] 4.7 mmol/L Normal 3.5-5.1 [facility] Comment on above: Performed By: #### C BC, BMP #### [facility] [address] Protein [Mass/Vol] 5.6 g/dL Low 6.4-8.9 [facility] Comment on above: Performed By: #### C BC, BMP #### [facility] [address] Sodium [Moles/Vol] 135 mmol/L Low 136-145 [facility] Comment on above: Performed By: #### C BC, BMP #### [facility] [address] [place] [address] [place] Urea nitrogen [Mass/Vol] 21 mg/dL Normal 7-25 [facility] Comment on above: Performed By: #### C BC, BMP #### [facility] [address] [place] [address] [place] Creatinine [Mass/volume] in Serum or PlasmaOrdered By: Jose Phillips on 06-07-2023 Creatinine [Mass/Vol] 1.48 mg/dL 0.70-1.30 [facility] Eosinophils Auto (Bld) [#/Vo l]Ordered By: Jose Phillips on 06-07-2023 Eosinophils (Bld) [#/Vol] 0.2 10*3/uL 0.0-0.45 [facility] Eosinophils/100 WBC Auto (Bl d)Ordered By: Jose Phillips on 06-07-2023 Eosinophils/100 WBC (Bld) 3.0 % . [facility] Erythrocyte distribution wid th Auto (RBC) [Ratio]Ordered By: Jose hPillips on 06-07-2023 Erythrocyte distribution width (RBC) [Ratio] 14.0 % 12.0-14.8 [facility] Globulin Calc (S) [Mass/Vol] Ordered By: Jose Phillips on 06-07-2023 Globulin (S) [Mass/Vol] 1.9 g/dL [facility] Glucose Glucometer (BldC) [M ass/Vol]Ordered By: Jose Phillips on 06-07-2023 Glucose [Mass/Vol] 224 mg/dL [facility] Comment on above: Random Glucose Refer ence Range is dependent on time and content of last meal. Glucose of more than 200 mg/dL in a nonstressed, ambulatory subject supports the diagnosis of Diabetes Mellitus. Glucose Poct Glucometerson 1 Commemt1 Glu2: Cleaned Meter [facility] Comment on above: Result Comment: PERF ORMED BY: [place] [address] PATHOLOGIST EPIC BEACON ANALYST RACHEL MCCORMICK M.D. Performed By: #### G LULS #### Point of Care testing , Glucose [Mass/Vol] 224 mg/dL Normal [facility] Comment on above: Result Comment: [place] Glucose Reference Range is dependent on time and content of last meal. Glucose of more than 200 mg/dL in a nonstressed, ambulatory subject supports the diagnosis of Diabetes Mellitus. Performed By: #### G LULS #### Point of Care testing , Commemt1 Glu2: Cleaned Meter [facility] Comment on above: Result Comment: PERF ORMED BY: [place] [address] PATHOLOGIST EPIC BEACON ANALYST RACHEL MCCORMICK M.D. Performed By: #### C BC, BMP #### [address] [place] [address] [facility] Glucose [Mass/Vol] 141 mg/dL Normal [facility] Comment on above: Result Comment: [place] om Glucose Reference Range is dependent on time and content of last meal. Glucose of more than 200 mg/dL in a nonstressed, ambulatory subject supports the diagnosis of Diabetes Mellitus. Performed By: #### C BC, BMP #### [facility] [address] [place] [id number] [facility] Glucose [Mass/volume] in Ser um or PlasmaOrdered By: Jose Phillips on 06-07-2023 Glucose [Mass/Vol] 183 mg/dL 70-100 [facility] Comment on above: ADA recommended refe rence rangeRandom Glucose Reference Range is dependent on time and content of last meal. Glucose of more than 200 mg/dL in a nonstressed, ambulatory subject supports the diagnosis of Diabetes Mellitus. Hematocrit Auto (Bld) [Volum e fraction]Ordered By: Jose Phillips on 06-07-2023 Hematocrit (Bld) [Volume fraction] 46.7 % 38.8-50.0 [facility] Hemoglobin [Mass/volume] in BloodOrdered By: Jose Phillips on 06-07-2023 Hemoglobin (Bld) [Mass/Vol] 16.2 g/dL 13.0-17.0 [facility] Leukocytes [#/volume] correc [place] for nucleated erythrocytes in Blood by Automated counOrdered By: Jose Phillips on 06-07-2023 WBC corrected for nucl RBC Auto (Bld) [#/Vol] 7.5 10*3/uL 4.1-10.5 [facility] Lymphocytes Auto (Bld) [#/Vo l]Ordered By: Jose Phillips on 06-07-2023 Lymphocytes (Bld) [#/Vol] 2.4 10*3/uL 1.00-4.8 [facility] Lymphocytes/100 WBC Auto (Bl d)Ordered By: Jose Phillips on 06-07-2023 Lymphocytes/100 WBC (Bld) 31.6 % . [facility] MCH Auto (RBC) [Entitic mass ]Ordered By: Jose Phillips on 06-07-2023 MCH (RBC) [Entitic mass] 32.1 pg 27.5-35.2 [facility] MCHC Auto (RBC) [Mass/Vol]Or dered By: Jose Phillips on 06-07-2023 MCHC (RBC) [Mass/Vol] 34.7 g/dL 32.5-35.6 [facility] MCV Auto (RBC) [Entitic vol] Ordered By: Jose Phillips on 06-07-2023 MCV (RBC) [Entitic vol] 92.5 fL 83.5-101 F [facility] Monocytes Auto (Bld) [#/Vol] Ordered By: Jose Phillips on 06-07-2023 Monocytes (Bld) [#/Vol] 0.7 10*3/uL 0.0-0.8 [facility] Monocytes/100 WBC Auto (Bld) Ordered By: Jose Phillips on 06-07-2023 Monocytes/100 WBC (Bld) 8.8 % . [facility] Neutrophils Auto (Bld) [#/Vo l]Ordered By: Jose Phillips on 06-07-2023 Neutrophils (Bld) [#/Vol] 4.2 10*3/uL 1.8-7.7 [facility] Neutrophils/100 WBC Auto (Bl d)Ordered By: Jose Phillips on 06-07-2023 Neutrophils/100 WBC (Bld) 55.8 % . [facility] No Panel InformationOrdered By: Jose Phillips on 06-07-2023 Bedside Glucose Comment Glu2: cleaned meter [facility] Estimated GFR (CKD-EPI) 57.281 mL/Min [facility] Creatinine Clearance (Chem 83.11 [facility] Nucleated erythrocytes [Pres ence] in Blood by Automated countOrdered By: Jose Phillips on 06-07-2023 Nucleated RBC Auto Ql (Bld) 0.2 /100{WBC} 0-0.5 [facility] Platelet mean volume Auto (B ld) [Entitic vol]Ordered By: Jose Phillips on 06-07-2023 Platelet mean volume (Bld) [Entitic vol] 8.5 fL 6.6-10.1 [facility] Platelets Auto (Bld) [#/Vol] Ordered By: Jose Phillips on 06-07-2023 Platelets (Bld) [#/Vol] 183 10*3/uL 150-450 [facility] Potassium [Moles/volume] in Serum or PlasmaOrdered By: Jose Phillips on 06-07-2023 Potassium [Moles/Vol] 4.7 mmol/L 3.5-5.1 [facility] Protein [Mass/volume] in Ser um or PlasmaOrdered By: Jose Phillips on 06-07-2023 Protein [Mass/Vol] 5.6 g/dL 6.4-8.9 [facility] RBC Auto (Bld) [#/Vol]Ordere d By: Jose Phillips on 06-07-2023 RBC (Bld) [#/Vol] 5.05 10*6/uL 3.90-5.60 [facility] Serum or plasma albumin/glob ulin mass ratioOrdered By: Jose Phillips on 06-07-2023 Albumin/Globulin [Mass ratio] 1.9 {ratio} [facility] Serum or plasma anion gap de terminationOrdered By: Jose Phillips on 06-07-2023 Anion gap [Moles/Vol] 10.2 mmol/L 6.0-15.0 [facility] Sodium [Moles/volume] in Ser um or PlasmaOrdered By: Jose Phillips on 06-07-2023 Sodium [Moles/Vol] 135 mmol/L 136-145 [facility] Urea nitrogen [Mass/volume] in Serum or PlasmaOrdered By: Jose Phillips on 06-07-2023 Urea nitrogen [Mass/Vol] 21 mg/dL 7-25 [facility] WBC Auto (Bld) [#/Vol]Ordere d By: Jose Phillips on 06-07-2023 WBC (Bld) [#/Vol] 7.5 10*3/uL 4.1-10.5 [facility] XR chest 2V*on 06-07-2023 XR chest 2V* [facility] Main [place] [address] [place] [id number] XRay Report Signed Patient: Demian Martinez MR#: [id number] [birth year] : 1975 Acct:[id number] Age/Sex: 48 / M ADM Date: 06/04/23 Loc: Room: [address] [place] [address] Type: ADM IN Attending Dr: Jose Phillips DO Copies to: MD Jose Edmond DO Ordering Provider: David Holm MD Date of Service: 06/07/23 XR/XR chest 2V*: Pneumothorax XR chest 2V* 06/06/2023 1:00 PM SIGNS AND SYMPTOMS: Pneumothorax PROTOCOL: Frontal and lateral radiographs of the chest COMPARISON: 06/06/2023 FINDINGS: The trachea is midline. The heart and mediastinal structures are within normal limits. There is redemonstration of a moderate right-sided pneumothorax which is similar to that seen on the prior exam. The lung parenchyma is clear. The bony thorax is intact. XR/XR chest 2V* IMPRESSION: There is redemonstration of a moderate right-sided pneumothorax which is similar to that seen on the prior exam. Impression dictated by: Daniella Brown M.D.06/07/2023 7:45 AM Dictation Location: [place] [address] Transcribed By: [facility] 06/07/23 0745 Dictated By: Daniella Brown II, MD 06/07/23 0744 Signed By: 06/07/[address] [facility] Glucose Poct Glucometerson 1 Glucose [Mass/Vol] 182 mg/dL Normal [facility] Comment on above: Result Comment: [place] Glucose Reference Range is dependent on time and content of last meal. Glucose of more than 200 mg/dL in a nonstressed, ambulatory subject supports the diagnosis of Diabetes Mellitus. PERFORMED BY: [address] [address] PATHOLOGIST EPIC BEACON ANALYST RACHEL MCCORMICK M.D. Performed By: #### C BC, DESEAN #### [place] [id number] [facility] Glucose [Mass/Vol] 153 mg/dL Normal [facility] Comment on above: Result Comment: [facility] Glucose Reference Range is dependent on time and content of last meal. Glucose of more than 200 mg/dL in a nonstressed, ambulatory subject supports the diagnosis of Diabetes Mellitus. PERFORMED BY: [place] [address] PATHOLOGIST EPIC BEACON ANALYST RACHEL MCCORMICK M.D. Performed By: #### G HOWARD #### Point of Care testing , XR chest 1V portableon 06-06 XR chest 1V portable [facility] Main [place] [address] [place] [address] XRay Report Signed Patient: Demian Martinez MR#: [id number] [birth year] : 1975 Acct:[id number] Age/Sex: 48 / M ADM Date: 06/04/23 Loc: Room: [address] [place] [address] Type: ADM IN Attending Dr: Jose Phillips DO Copies to: Jose Phillips DO Ordering Provider: Jose Phillips DO Date of Service: 06/06/23 XR/XR chest 1V portable: dyspnea XR chest 1V portable 06/06/2023 2:44 PM SIGNS AND SYMPTOMS: Shortness of breath PROTOCOL: Frontal radiograph of the chest COMPARISON: 06/06/2023 from 8:06 AM FINDINGS: The trachea is midline. The heart and mediastinal structures are within normal limits. The lung parenchyma is clear. The right-sided pneumothorax is similar when compared to the prior exam. The bony thorax is intact. XR/XR chest 1V portable IMPRESSION: The right-sided pneumothorax is similar when compared to the prior exam. Impression dictated by: Daniella Brown M.D.06/06/2023 3:09 PM Dictation Location: RADIO-PC-13 Transcribed By: ROBE 06/06/23 1509 Dictated By: Daniella Brown II, MD 06/06/23 1507 Signed By: 06/06/23 1509 [facility] XR chest 2V*on 06-06-2023 XR chest 2V* [facility] [place] [address] XRay Report Signed Patient: Demian Martinez MR#: [id number] [birth year] : 1975 Acct:[id number] Age/Sex: 48 / M ADM Date: 06/04/23 Loc: Room: [address] [place] [address] Type: ADM IN Attending Dr: Jose Phillips DO Copies to: Nasrin Daley APRN, ACNP-EJ Phillips DO Ordering Provider: Nasrin Daley APRN, ACNP-BC Date of Service: 06/06/23 XR/XR chest 2V*: f/u right PTX..chest tube removed Plain film chest 2 view HISTORY: History of RIGHT pneumothorax. Chest tube removal yesterday. Shortness of breath. COMPARISON: 06/05/23 FINDINGS: SUPPORT DEVICES: None POSTSURGICAL CHANGES: None HEART: Within normal limits cardiac stent present. PULMONARY ROCIO: Within normal limits MEDIASTINUM: Unremarkable LUNGS AND PLEURA: Development of a moderate RIGHT pneumothorax. Basilar linear atelectasis is greater on the RIGHT. No new consolidation. BONY STRUCTURES: Intact ADDITIONAL FINDINGS None XR/XR chest 2V* IMPRESSION: Developing Moderate RIGHT pneumothorax. Preliminary findings given 11:06 AM Impression dictated by: Jacob Leone M.D.06/06/2023 11:12 AM Dictation Location: RADIO--01 Transcribed By: ROBE 06/06/23 1112 Dictated By: Jacob Leone DO 06/06/23 1101 Signed By: 06/06/23 111 [facility] A1C with Estimated Average G luon 06-05-2023 Glucose [Mass/Vol] 174 mg/dL [facility] Comment on above: Order Comment: Comme nt Add on Result Comment: PERF ORMED BY: [place] [address] PATHOLOGIST EPIC BEACON ANALYST RACHEL MCCORMICK M.D. Performed By: #### A 1C [facility] eA #### [address] HbA1c (Bld) [Mass fraction] 7.7 % High 4.3-5.6 [facility] Comment on above: Order Comment: Comme nt Add on Result Comment: Incr eased risk for diabetes: 5.7 - 6.4 diabetes: >6.4 glycemic control for adults with diabetes: <7.0 Performed By: #### A 1C [facility] eA #### [address] Basic Metabolic Panelon 05-21 Anion gap [Moles/Vol] 11.3 mmol/L Normal 6.0-15.0 [facility] Comment on above: Performed By: #### C BC, BMP #### [address] Calcium [Mass/Vol] 8.6 mg/dL Normal 8.6-10.3 [facility] Comment on above: Performed By: #### C BC, BMP #### [address] Chloride [Moles/Vol] 99 mmol/L Normal 98-107 [facility] Comment on above: Performed By: #### C BC, BMP #### [address] CO2 [Moles/Vol] 29.0 mmol/L Normal 21.0-31.0 [facility] Comment on above: Performed By: #### C BC, BMP #### [address] Creatinine [Mass/Vol] 1.51 mg/dL High 0.70-1.30 [facility] Comment on above: Performed By: #### C BC, BMP #### [place] [address] [place] Creatinine Clr Calc Pharmacy 81.59 [facility] Comment on above: Result Comment: PERF ORMED BY: [place] [address] PATHOLOGIST EPIC BEACON ANALYST RACHEL MCCORMICK M.D. Performed By: #### C BC, BMP #### [place] [address] [place] GFR/1.73 sq M.predicted MDRD (S/P/Bld) [Vol rate/Area] 55.919 mL/min/{1.73_m2} [facility] Comment on above: Performed By: #### C BC, BMP #### [address] Glucose [Mass/Vol] 187 mg/dL High 70-100 [facility] Comment on above: Result Comment: [place] Glucose Reference Range is dependent on time and content of last meal. Glucose of more than 200 mg/dL in a nonstressed, ambulatory subject supports the diagnosis of Diabetes Mellitus. ADA recommended reference range Performed By: #### C BC, BMP #### [place] [address] [place] Potassium [Moles/Vol] 4.3 mmol/L Normal 3.5-5.1 [facility] Comment on above: Performed By: #### C BC, BMP #### [place] [address] [place] Sodium [Moles/Vol] 135 mmol/L Low 136-145 [facility] Comment on above: Performed By: #### C BC, BMP #### [place] [address] [place] Urea nitrogen [Mass/Vol] 14 mg/dL Normal 7-25 [facility] Comment on above: Performed By: #### C BC, BMP #### [place] [address] [place] [address] chest wo juan josé 06-05-2023 CT chest wo [facility] Main [place] [address] [place] [address] CT Scan Report Signed Patient: Demian Martinez MR#: [id number] 66 : 1975 Acct:[id number] Age/Sex: 48 / M ADM Date: 06/04/23 Loc: 4N Room: 4J3748-7 Type: ADM IN Attending Dr: Jose Phillips DO Copies to: DO Jose Stallings DO Ordering Provider: Jacob Amaya DO Date of Service: 06/05/23 CT/CT chest wo con: Spontaneous PTX CT chest wo con 06/04/2023 2:00 PM SIGN AND SYMPTOMS: Pain at chest tube site, spontaneous pneumothorax TECHNIQUE: Multidetector CT axial slices of the chest were obtained without IV contrast. Multiplanar reformats were performed and viewed on a separate workstation and reviewed to further define anatomy and possible pathology. CT was performed with one or more of the following dose reduction techniques: Automated exposure control, adjustment of the mA and/or kV according to patient size, or use of iterative reconstruction technique. COMPARISON: None.. FINDINGS: Lower neck: Thyroid gland within normal limits, no supraclavicle adenopathy. Vessels: Calcified plaque is noted in the coronary arteries and thoracic aorta. Mediastinum and Rocio: Within normal limits. Heart: Normal size. No pericardial effusion. Airways: Within normal limits Lungs: There is dependent atelectasis, right greater than left. There is groundglass attenuation surrounding the right pleural catheter which may be infectious or inflammatory in nature. Pleura: Minimal pleural air is noted anteriorly along the cardiophrenic sulcus on the right. Chest Wall: There is a small amount of subcutaneous emphysema adjacent to a right-sided pleural catheter. Upper Abdomen: Within normal limits. Bones: Degenerative changes are noted in the thoracic spine. CT/CT chest wo con IMPRESSION: There is groundglass attenuation surrounding the right pleural catheter which may be infectious or inflammatory in nature. Minimal pleural air is noted anteriorly along the cardiophrenic sulcus on the right. There is a small amount of subcutaneous emphysema adjacent to a right-sided pleural catheter. There is dependent atelectasis, right greater than left. Impression dictated by: Daniella Brown M.D.06/05/2023 9:59 AM Dictation Location: RADIO-PC-07 Transcribed By: ROBE 06/05/23958 Dictated By: Daniella Brown II, MD 06/05/2351 Signed By: 06/05/[address] [facility] Complete Blood Count Auto Di ffon 06-05-2023 Basophils (Bld) [#/Vol] 0.0 10*3/uL Normal 0.0-0.2 [facility] Comment on above: Result Comment: PERF ORMED BY: [place] [address] PATHOLOGIST EPIC BEACON ANALYST RACHEL MCCORMICK M.D. Performed By: #### C BC, BMP #### [address] Basophils/100 WBC (Bld) 0.4 % Normal . [facility] Comment on above: Performed By: #### C BC, BMP #### [address] Eosinophils (Bld) [#/Vol] 0.1 10*3/uL Normal 0.0-0.45 [facility] Comment on above: Performed By: #### C BC, BMP #### [address] Eosinophils/100 WBC (Bld) 1.3 % Normal . [facility] Comment on above: Performed By: #### C BC, BMP #### [address] Erythrocyte distribution width (RBC) [Ratio] 14.4 % Normal 12.0-14.8 [facility] Comment on above: Performed By: #### C BC, BMP #### [address] Hematocrit (Bld) [Volume fraction] 48.5 % Normal 38.8-50.0 [facility] Comment on above: Performed By: #### C BC, BMP #### [address] Hemoglobin (Bld) [Mass/Vol] 16.4 g/dL Normal 13.0-17.0 [facility] Comment on above: Performed By: #### C BC, BMP #### [facility] [address] [place] [address] [place] Lymphocytes (Bld) [#/Vol] 2.1 10*3/uL Normal 1.00-4.8 [facility] Comment on above: Performed By: #### C BC, BMP #### [facility] [address] [place] [id number] [place] Lymphocytes/100 WBC (Bld) 20.9 % Normal . [facility] Comment on above: Performed By: #### C BC, BMP #### [facility] [address] [place] [address] [place] MCH (RBC) [Entitic mass] 31.3 pg Normal 27.5-35.2 [facility] Comment on above: Performed By: #### C BC, BMP #### [facility] [address] [place] [address] [place] MCV (RBC) [Entitic vol] 92.9 fL Normal 83.5-101 F [facility] Comment on above: Performed By: #### C BC, BMP #### [facility] [address] [place] [address] [place] Mean Corpuscular HGB Conc 33.7 g/dL Normal 32.5-35.6 [facility] Comment on above: Performed By: #### C BC, BMP #### [facility] [address] [place] [address] [place] Monocytes (Bld) [#/Vol] 0.8 10*3/uL Normal 0.0-0.8 [facility] Comment on above: Performed By: #### C BC, BMP #### [facility] [address] [place] [id number] [place] Monocytes/100 WBC (Bld) 7.9 % Normal . [facility] Comment on above: Performed By: #### C BC, BMP #### [facility] [address] [place] [id number] [place] Neutrophils (Bld) [#/Vol] 7.1 10*3/uL Normal 1.8-7.7 [facility] Comment on above: Performed By: #### C BC, BMP #### [facility] [address] [place] [address] [place] Neutrophils/100 WBC (Bld) 69.5 % Normal . [facility] Comment on above: Performed By: #### C BC, BMP #### [facility] [address] NRBC% 0.0 /100{WBC} Normal 0-0.5 [facility] Comment on above: Performed By: #### C BC, BMP #### [facility] [address] Platelet mean volume (Bld) [Entitic vol] 8.8 fL Normal 6.6-10.1 [facility] Comment on above: Performed By: #### C BC, BMP #### [facility] [address] Platelets (Bld) [#/Vol] 199 10*3/uL Normal 150-450 [facility] Comment on above: Performed By: #### C EJ, BMP #### [facility] [address] [place] [address] [place] RBC (Bld) [#/Vol] 5.22 10*6/uL Normal 3.90-5.60 [facility] Comment on above: Performed By: #### C BC, BMP #### [facility] [address] [place] [address] [place] WBC (Bld) [#/Vol] 10.2 10*3/uL Normal 4.1-10.5 [facility] Comment on above: Performed By: #### C BC, BMP #### [address] Glucose mean value [Mass/vol ume] in Blood Estimated from glycated hemoglobinOrdered By: Meghan Camacho on 06-05-2023 Average glucose Estimated from glycated hemoglobin (Bld) [Mass/Vol] 174 mg/dL [facility] Hemoglobin A1c percentageOrd ered By: Meghan Camacho on 06-05-2023 HbA1c (Bld) [Mass fraction] 7.7 % 4.3-5.6 [facility] Comment on above: Increased risk for d iabetes: 5.7 - 6.4diabetes: >6.4glycemic control for adults with diabetes: <7.0 XR chest 1V portableon 06-05 XR chest 1V portable [facility] Main [place] [address] [place] [address] XRay Report Signed Patient: Demian Martinez MR#: [id number] 66 : 1975 Acct:[id number] Age/Sex: 48 / M ADM Date: 06/04/23 Loc: Room: [address] [place] [address] Type: ADM IN Attending Dr: Jose Phillips DO Copies to: DO Jose Stallings DO Ordering Provider: Jacob Amaya DO Date of Service: 06/05/23 XR/XR chest 1V portable: PTX Plain film chest Single view HISTORY: Assessment for pneumothorax. COMPARISON: 06/04/2023 FINDINGS: SUPPORT DEVICES: None POSTSURGICAL CHANGES: None HEART: Within normal limits PULMONARY ROCIO: Within normal limits MEDIASTINUM: Unremarkable LUNGS AND PLEURA: Continued linear scarring bilaterally. Continued mild right hemidiaphragm elevation. No pneumothorax. BONY STRUCTURES: Intact ADDITIONAL FINDINGS None XR/XR chest 1V portable IMPRESSION: No pneumothorax. Continued linear scarring. Impression dictated by: Jacob Leone M.D.06/05/2023 8:06 AM Dictation Location: [place] [address] Transcribed By: [facility] 06/05/23805 Dictated By: Jacob Leone DO 06/05/2304 Signed By: 06/05/[address] [facility] Basic Metabolic Panelon 05-21 Anion gap [Moles/Vol] Not performed Normal 6.0-15.0 [facility] Comment on above: Performed By: #### B MP #### [facility] [address] [place] [address] [place] Calcium [Mass/Vol] 8.8 mg/dL Normal 8.6-10.3 [facility] Comment on above: Performed By: #### B MP #### [facility] [address] Chloride [Moles/Vol] 102 mmol/L Normal 98-107 [facility] Comment on above: Performed By: #### B MP #### [facility] [address] CO2 [Moles/Vol] 26.6 mmol/L Normal 21.0-31.0 [facility] Comment on above: Performed By: #### B MP #### [facility] [address] Creatinine [Mass/Vol] 1.51 mg/dL High 0.70-1.30 [facility] Comment on above: Performed By: #### B MP #### [address] Creatinine Clr Calc Pharmacy 81.[address] [facility] Comment on above: Result Comment: PERF ORMED BY: [place] [address] PATHOLOGIST EPIC BEACON ANALYST RACHEL MCCORMICK M.D. Performed By: #### B MP #### [address] GFR/1.73 sq M.predicted MDRD (S/P/Bld) [Vol rate/Area] 55.919 mL/min/{1.73_m2} Normal [facility] Comment on above: Performed By: #### B MP #### [address] Glucose [Mass/Vol] 208 mg/dL High 70-100 [facility] Comment on above: Result Comment: [place] Glucose Reference Range is dependent on time and content of last meal. Glucose of more than 200 mg/dL in a nonstressed, ambulatory subject supports the diagnosis of Diabetes Mellitus. ADA recommended reference range Performed By: #### B MP #### [address] Potassium Normal 3.5-5.1 [facility] Comment on above: Result Comment: Spec imen hemolyzed, redraw requested Performed By: #### B MP #### [facility] [address] Sodium [Moles/Vol] 135 mmol/L Low 136-145 [facility] Comment on above: Performed By: #### B MP #### [facility] [address] Urea nitrogen [Mass/Vol] 14 mg/dL Normal 7-25 [facility] Comment on above: Performed By: #### B MP #### [address] Complete Blood Count Auto Di ffon 06-04-2023 Basophils (Bld) [#/Vol] 0.1 10*3/uL Normal 0.0-0.2 [facility] Comment on above: Order Comment: REDRA W Result Comment: PERF ORMED BY: [place] [address] PATHOLOGIST EPIC BEACON ANALYST RACHEL MCCORMICK M.D. Performed By: #### C BC #### [address] Basophils/100 WBC (Bld) 0.5 % Normal . [facility] Comment on above: Order Comment: REDRA W Performed By: #### C BC #### [address] Eosinophils (Bld) [#/Vol] 0.1 10*3/uL Normal 0.0-0.45 [facility] Comment on above: Order Comment: REDRA W Performed By: #### C BC #### [address] Eosinophils/100 WBC (Bld) 1.0 % Normal . [facility] Comment on above: Order Comment: REDRA W Performed By: #### C BC #### [address] Erythrocyte distribution width (RBC) [Ratio] 14.6 % Normal 12.0-14.8 [facility] Comment on above: Order Comment: REDRA W Performed By: #### C BC #### [facility] [address] Hematocrit (Bld) [Volume fraction] 47.5 % Normal 38.8-50.0 [facility] Comment on above: Order Comment: REDRA W Performed By: #### C BC #### [facility] [address] Hemoglobin (Bld) [Mass/Vol] 16.2 g/dL Normal 13.0-17.0 [facility] Comment on above: Order Comment: REDRA W Performed By: #### C BC #### [facility] [address] Lymphocytes (Bld) [#/Vol] 2.3 10*3/uL Normal 1.00-4.8 [facility] Comment on above: Order Comment: REDRA W Performed By: #### C BC #### [address] Lymphocytes/100 WBC (Bld) 20.9 % Normal . [facility] Comment on above: Order Comment: REDRA W Performed By: #### C BC #### [address] MCH (RBC) [Entitic mass] 31.6 pg Normal 27.5-35.2 [facility] Comment on above: Order Comment: REDRA W Performed By: #### C BC #### [address] MCV (RBC) [Entitic vol] 92.6 fL Normal 83.5-101 F [facility] Comment on above: Order Comment: REDRA W Performed By: #### C BC #### [address] Mean Corpuscular HGB Conc 34.1 g/dL Normal 32.5-35.6 [facility] Comment on above: Order Comment: REDRA W Performed By: #### C BC #### [address] Monocytes (Bld) [#/Vol] 0.9 10*3/uL High 0.0-0.8 [facility] Comment on above: Order Comment: REDRA W Performed By: #### C BC #### [address] Monocytes/100 WBC (Bld) 8.2 % Normal . [facility] Comment on above: Order Comment: REDRA W Performed By: #### C BC #### [address] Neutrophils (Bld) [#/Vol] 7.5 10*3/uL Normal 1.8-7.7 [facility] Comment on above: Order Comment: REDRA W Performed By: #### C BC #### [address] Neutrophils/100 WBC (Bld) 69.4 % Normal . [facility] Comment on above: Order Comment: REDRA W Performed By: #### C BC #### [address] NRBC% 0.2 /100{WBC} Normal 0-0.5 [facility] Comment on above: Order Comment: REDRA W Performed By: #### C BC #### [address] Platelet mean volume (Bld) [Entitic vol] 8.6 fL Normal 6.6-10.1 [facility] Comment on above: Order Comment: REDRA W Performed By: #### C BC #### [address] Platelets (Bld) [#/Vol] 226 10*3/uL Normal 150-450 [facility] Comment on above: Order Comment: REDRA W Performed By: #### C BC #### [address] RBC (Bld) [#/Vol] 5.12 10*6/uL Normal 3.90-5.60 [facility] Comment on above: Order Comment: REDRA W Performed By: #### C BC #### [address] WBC (Bld) [#/Vol] 10.9 10*3/uL High 4.1-10.5 [facility] Comment on above: Order Comment: REDRA W Performed By: #### C BC #### [address] Redraw Potassiumon 3 Potassium [Moles/Vol] 4.4 mmol/L Normal 3.5-5.1 [facility] Comment on above: Order Comment: FIRST DRAW HEMOLYZED Result Comment: PERF ORMED BY: [place] [address] PATHOLOGIST EPIC BEACON ANALYST RACHEL MCCORMICK M.D. Performed By: #### R EDRAW K #### [address] XR chest 1V portableon 06-04 XR chest 1V portable [facility] Main [place] [address] [place] [address] XRay Report Signed Patient: Demian Martinez MR#: [id number] 68 : 1975 Acct:[id number] Age/Sex: 48 / M ADM Date: 06/04/23 Loc: Room: 3L1286-0 Type: ADM IN Attending Dr: David Hannon MD Copies to: DO David Stallings MD Ordering Provider: Jacob Amaya DO Date of Service: 06/04/23 XR/XR chest 1V portable: PTX XR chest 1V portable 06/04/2023 8:56 AM SIGNS AND SYMPTOMS: Follow-up right-sided pneumothorax PROTOCOL: Frontal radiograph of the chest COMPARISON: 09/28/2022 FINDINGS: The trachea is midline. The heart and mediastinal structures are within normal limits. The lung parenchyma is clear. The bony thorax is intact. XR/XR chest 1V portable IMPRESSION: No acute cardiopulmonary pathology. If there is continued clinical concern for residual pneumothorax, follow-up with upright PA view of the chest would be more sensitive. Impression dictated by: Daniella Brown M.D.06/04/2023 9:24 AM Dictation Location: [place] [address] Transcribed By: [facility] 06/04/23923 Dictated By: Daniella Brown II, MD 06/04/23921 Signed By: 06/04/23923 [facility] Office Visit (Cardiology)on 03-02-2023 Follow-up visit Diagnoses/Problems Assessed Ischemic cardiomyopathy (414.8) (I25.5) STEMI (ST elevation myocardial infarction) (410.90) (I21.3) Coronary artery disease involving eklutna coronary artery of eklutna heart without angina pectoris (414.01) (I25.10) Status post insertion of drug eluting coronary artery stent (V45.82) (Z95.5) Mixed hyperlipidemia (272.2) (E78.2) Former smoker (V15.82) (Z87.891) Quit in 2004 Class 1 obesity with body mass index (BMI) of 30.0 to 30.9 in adult (278.00,V85.30) (E66.9,Z68.30) Hypertension (401.9) (I10) Orders Class 1 obesity with body mass index (BMI) of 30.0 to 30.9 in adult Healthy Weight Tips; Status:Complete - Retrospective Authorization; Done: [id number] Some eating tips that can help you lose weight.; Status:Complete - Retrospective Authorization; Done: [id number] Coronary artery disease involving eklutna coronary artery of eklutna heart without angina pectoris, Hypertension, Mixed hyperlipidemia ALT - Alanine Aminotransferase, Serum; Status:Active - Retrospective Authorization; Requested for:[id number]; AST; Status:Active - Retrospective Authorization; Requested for:[id number]; Basic Metabolic Panel; Status:Active - Retrospective Authorization; Requested for:[id number]; Lipid Panel; Status:Active - Retrospective Authorization; Requested for:[id number]; SocHx: Former smoker Tobacco Use Screening; Status:Complete; Done: [id number] Patient Instructions Please bring all medicines, vitamins, and herbal supplements with you when you come to the office. Prescriptions will not be filled unless you are compliant with your follow up appointments or have a follow up appointment scheduled as per instruction of your physician. Refills should be requested at the time of your visit. Follow up in 6 months Chief Complaint DEMIAN MARTINEZ is being seen for 3 month follow up. Patient is a 47-year-old gentleman who returns for follow-up and is doing very well. He underwent inferior STEMI in September 2022, during my absence and underwent PCI of the RCA with 2 long drug-eluting stents performed by Dr. Ramu Whitmore with preserved left ventricular function and only minimal left coronary disease. Details of the angiogram and intervention are reviewed with the patient. He is tolerating his guideline directed medical therapies well other than mild nuisance bruising. 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 He went back to work 3 to 4 days right after his OH without any problems. Left ventricular function by echo is completely normal by angiogram he had moderate LV dysfunction with inferobasilar akinesis this is not described on the follow-up echo. Recommendations, continue current therapies, follow-up in 6 months Active Problems Problems Class 1 obesity with body mass index (BMI) of 30.0 to 30.9 in adult (278.00,V85.30) (E66.9,Z68.30) Coronary artery disease involving eklutna coronary artery of eklutna heart without angina pectoris (414.01) (I25.10) Former smoker (V15.82) (Z87.891) Quit in 2004 Ischemic cardiomyopathy (414.8) (I25.5) Mixed hyperlipidemia (272.2) (E78.2) STEMI (ST elevation myocardial infarction) (410.90) (I21.3) Surgical History Problems History of Appendectomy History of Complete colonoscopy History of Finger surgical procedure History of Tonsillectomy Current Meds Medication NameInstruction Aspirin 81 MG Oral Tablet ChewableTake 1 tablet daily Atorvastatin Calcium 80 MG Oral TabletTAKE 1 TABLET AT BEDTIME. Brilinta 90 MG Oral TabletTAKE 1 TABLET TWICE DAILY. Metoprolol Succinate ER 25 MG Oral Tablet Extended Release 24 HourTAKE 1 TABLET DAILY. Nitroglycerin 0.4 MG Sublingual Tablet SublingualPLACE 1 TABLET UNDER THE TONGUE EVERY 5 MINUTES UP TO 3 DOSES NEEDED FOR CHEST PAIN. Valsartan 40 MG Oral TabletTAKE 2 TABLET Bedtime Verbally updated medication list with Patient. Patient did not bring medication bottles or list. Everardo Winters MA Allergies Medication No Known Drug Allergies Recorded By: Mariola Hammer; 10/05/2022 4:05:51 PM Family History Mother Family history of diabetes mellitus (V18.0) (Z83.3) Father Family history of coronary artery disease (V17.3) (Z82.49) Social History Problems Daily caffeine consumption 1 liter of diet mountain dew daily Former smoker (V15.82) (Z87.891) Quit in 2004 No illicit drug use Occasional alcohol use Review of Systems Constitutional: not feeling tired. Cardiovascular: no intermittent leg claudication and as noted in HPI. Respiratory: no cough and no shortness of breath. Gastrointestinal: no change in bowel habits and no blood in stools. Integumentary: no skin rashes. Neurological: no seizures and no frequent falls. All other systems have been reviewed and are negative for complaint. Vitals Vital Signs Recorded: 02Mar2023 10:28AM Heart Rate78, L Radial [id number], RUE, Sitting [id number], RUE, Sitting Height6 ft 4 in Weight2 (more content not included)... Normal [employer] Tobacco Screening.on 023 Adult depression screening assessment No [facility] [employer] y 250 DO Work Phone: Fall risk assessment a) No falls within the last year [facility] [employer] y 250 DO Work Phone: Tobacco use status [facility] b) No M [facility] [employer] y 250 DO Work Phone: Tobacco Screening.on 023 Adult depression screening assessment No [facility] [employer] [facility] y 250 DO Work Phone: Fall risk assessment c) Not medically indicated [facility] [employer] y 250 DO Work Phone: Tobacco use status [facility] b) No M [facility] [employer] 250 DO Work Phone: Complete Blood Count Auto Di ffon 09-29-2022 Basophils (Bld) [#/Vol] 0.0 10*3/uL Normal 0.0-0.2 [facility] Comment on above: Result Comment: PERF ORMED BY: [place] [address] PATHOLOGIST EPIC BEACON ANALYST RCAHEL MCCORMICK M.D. Performed By: #### C BC, CMP, HS TROP #### [address] Basophils/100 WBC (Bld) 0.1 % Normal . F [facility] Comment on above: Performed By: #### C BC, CMP, HS TROP #### [address] Eosinophils (Bld) [#/Vol] 0.1 10*3/uL Normal 0.0-0.45 [facility] Comment on above: Performed By: #### C BC, CMP, HS TROP #### [address] Eosinophils/100 WBC (Bld) 0.5 % Normal . [facility] Comment on above: Performed By: #### C BC, CMP, HS TROP #### [address] Erythrocyte distribution width (RBC) [Ratio] 13.1 % Normal 12.0-14.8 [facility] Comment on above: Performed By: #### C BC, CMP, HS TROP #### [address] Hematocrit (Bld) [Volume fraction] 40.7 % Normal 38.8-50.0 [facility] Comment on above: Performed By: #### C BC, CMP, HS TROP #### [place] [address] [place] Hemoglobin (Bld) [Mass/Vol] 13.8 g/dL Normal 13.0-17.0 [facility] Comment on above: Performed By: #### C BC, CMP, HS TROP #### [address] Lymphocytes (Bld) [#/Vol] 1.3 10*3/uL Normal 1.00-4.8 [facility] Comment on above: Performed By: #### C BC, CMP, HS TROP #### [facility] [address] [place] [address] [place] Lymphocytes/100 WBC (Bld) 10.6 % Normal . [facility] Comment on above: Performed By: #### C BC, CMP, HS TROP #### [facility] [address] [place] [address] [place] MCH (RBC) [Entitic mass] 30.6 pg Normal 27.5-35.2 [facility] Comment on above: Performed By: #### C BC, CMP, HS TROP #### [facility] [address] [place] [address] [place] MCV (RBC) [Entitic vol] 90.4 fL Normal 83.5-101 F [facility] Comment on above: Performed By: #### C BC, CMP, HS TROP #### [facility] [address] [place] [address] [place] Mean Corpuscular HGB Conc 33.9 g/dL Normal 32.5-35.6 [facility] Comment on above: Performed By: #### C BC, CMP, HS TROP #### [facility] [address] [place] [address] [place] Monocytes (Bld) [#/Vol] 1.0 10*3/uL High 0.0-0.8 [facility] Comment on above: Performed By: #### C BC, CMP, HS TROP #### [facility] [address] [place] [address] [place] Monocytes/100 WBC (Bld) 8.5 % Normal . F [facility] Comment on above: Performed By: #### C BC, CMP, HS TROP #### [facility] [address] [place] [address] [place] Neutrophils (Bld) [#/Vol] 9.7 10*3/uL High 1.8-7.7 [facility] Comment on above: Performed By: #### C BC, CMP, HS TROP #### [facility] [address] [place] [id number] [place] Neutrophils/100 WBC (Bld) 80.3 % Normal . [facility] Comment on above: Performed By: #### C BC, CMP, HS TROP #### [facility] [address] [place] [address] NRBC% 0.0 /100{WBC} Normal 0-0.5 [facility] Comment on above: Performed By: #### C BC, CMP, HS TROP #### [facility] [address] [place] [address] Platelet mean volume (Bld) [Entitic vol] 8.4 fL Normal 6.6-10.1 [facility] Comment on above: Performed By: #### C BC, CMP, HS TROP #### [address] Platelets (Bld) [#/Vol] 247 10*3/uL Normal 150-450 [facility] Comment on above: Performed By: #### C BC, CMP, HS TROP #### [address] RBC (Bld) [#/Vol] 4.50 10*6/uL Normal 3.90-5.60 [facility] Comment on above: Performed By: #### C BC, CMP, HS TROP #### [address] WBC (Bld) [#/Vol] 12.1 10*3/uL High 4.1-10.5 [facility] Comment on above: Performed By: #### C BC, CMP, HS TROP #### [facility] [address] [place] [address] Comprehensive Metabolic Pane kike 09-29-2022 Albumin [Mass/Vol] 3.5 g/dL Normal 3.2-5.5 [facility] Comment on above: Performed By: #### C BC, CMP, HS TROP #### [address] Albumin/Globulin [Mass ratio] 1.8 {ratio} Normal [facility] Comment on above: Performed By: #### C BC, CMP, HS TROP #### [address] ALP [Catalytic activity/Vol] 57 U/L Normal 32-92 [facility] Comment on above: Performed By: #### C BC, CMP, HS TROP #### [facility] [address] ALT [Catalytic activity/Vol] 43 U/L Normal 10-60 [facility] Comment on above: Performed By: #### C BC, CMP, HS TROP #### [facility] [address] Anion gap [Moles/Vol] 9.8 mmol/L Normal 6.0-15.0 [facility] Comment on above: Performed By: #### C BC, CMP, HS TROP #### [address] AST [Catalytic activity/Vol] 114 U/L High 10-42 [facility] Comment on above: Performed By: #### C BC, CMP, HS TROP #### [facility] [address] [place] [address] Bilirubin [Mass/Vol] 1.0 mg/dL Normal 0.3-1.2 [facility] Comment on above: Performed By: #### C BC, CMP, HS TROP #### [address] Calcium [Mass/Vol] 8.4 mg/dL Normal 8.2-10.2 [facility] Comment on above: Performed By: #### C BC, CMP, HS TROP #### [facility] [address] [place] [address] Chloride [Moles/Vol] 104 mmol/L Normal 95-114 [facility] Comment on above: Performed By: #### C BC, CMP, HS TROP #### [facility] [address] [place] [address] CO2 [Moles/Vol] 28.6 mmol/L Normal 22.0-30.0 [facility] Comment on above: Performed By: #### C BC, CMP, HS TROP #### [facility] [address] [place] [address] Creatinine [Mass/Vol] 1.46 mg/dL High 0.64-1.27 [facility] Comment on above: Performed By: #### C BC, CMP, HS TROP #### [facility] [address] [place] [address] Creatinine Clr Calc Pharmacy 84.21 [facility] Comment on above: Result Comment: PERF ORMED BY: [place] [address] PATHOLOGIST EPIC BEACON ANALYST RACHEL MCCORMICK M.D. Performed By: #### C BC, CMP, HS TROP #### [address] Estimated GFR ( Sarah > 60 [facility] Comment on above: Result Comment: GFR estimated reference range: According to KDOQI guidelines, <60 ml/min/1.73m2 is sufficient to diagnose a patient with chronic kidney disease. Performed By: #### C BC, CMP, HS TROP #### [facility] [address] [place] [address] Estimated GFR (Non- Am 51 [facility] Comment on above: Performed By: #### C BC, CMP, HS TROP #### [address] Globulin (S) [Mass/Vol] 2.0 g/dL Normal [facility] Comment on above: Performed By: #### C BC, CMP, HS TROP #### [facility] [address] [place] [address] Glucose [Mass/Vol] 179 mg/dL High 70-100 [facility] Comment on above: Result Comment: [place] om Glucose Reference Range is dependent on time and content of last meal. Glucose of more than 200 mg/dL in a nonstressed, ambulatory subject supports the diagnosis of Diabetes Mellitus. ADA recommended reference range Performed By: #### C BC, CMP, HS TROP #### [address] Potassium [Moles/Vol] 4.4 mmol/L Normal 3.5-5.1 [facility] Comment on above: Performed By: #### C BC, CMP, HS TROP #### [facility] [address] [place] [id number] [place] Protein [Mass/Vol] 5.5 g/dL Low 6.1-7.9 [facility] Comment on above: Performed By: #### C BC, CMP, HS TROP #### [facility] [address] [place] [id number] [place] Sodium [Moles/Vol] 138 mmol/L Normal 136-146 [facility] Comment on above: Performed By: #### C BC, CMP, HS TROP #### [facility] [address] Urea nitrogen [Mass/Vol] 18 mg/dL Normal 9-23 [facility] Comment on above: Performed By: #### C BC, CMP, HS TROP #### [facility] [address] [place] [id number] [facility] ECG 12 lead ECGon 09-29-2022 ECG 12 lead ECG [facility] [address] [place] [address] [place] [address] Electrocardiograph Report Signed Patient: Demian Martinez MR#: [id number] 66 : 1975 Acct:[id number] Age/Sex: 47 / M ADM Date: 09/28/22 Loc: Room: [address] [place] [address] Type: ADM IN Attending Dr: Ramu Espitia MD Ordering Provider: Ramu Espitia MD Date of Service: 09/29/2205/13/500 ECG/ECG 12 lead ECG: Post Angioplasty Procedure in AM Copies to: Test Reason : Blood Pressure : / mmHG Vent. Rate : 055 BPM Atrial Rate : 055 BPM P-R Int : 142 ms QRS Dur : 092 ms QT Int : 412 ms P-R-T Axes : 078 -37 068 degrees QTc Int : 394 ms Sinus bradycardia Left axis deviation Inferior infarct , age undetermined Abnormal ECG No previous ECGs available Confirmed by LEONCIO STILL MD, FACC ([id number]) on 09/29/2022 8:55:00 AM Referred By: Electronically Signed By:LEONCIO STILL MD FACC Transcribed By: MUS Signed By Rosas Still MD 09/29/22 0855 [facility] echo transthoracicon [facility] echo transthoracic [facility] Main [place] [address] [place], [place] [id number] Echocardiogram Signed Patient: Demian Martinez MR#: [id number] 66 : 1975 Acct:[id number] Age/Sex: 47 / M ADM Date: 09/28/22 Loc: Room: [address] [place] [address] Type: ADM IN Attending Dr: Ramu Espitia MD Ordering Provider: Ramu Espitia MD Date of Service: 09/29/2205/13/500 [facility] echo transthoracic: INFERIOR STEMI Copies to: MD Rosas Nick MD BSA: 2.4 m2 BP: 109/68 mmHg HR: 65 Reason For Study: INFERIOR STEMI History: No known cardiac history Interpretation Summary The left ventricular size, thickness and function are normal Ejection Fraction = 60-65%. A variety of Doppler measurements indicate normal left ventricular diastolic function. There is trace mitral regurgitation. There is trace tricuspid regurgitation. Procedure/Quality: A two-dimensional transthoracic echocardiogram with color flow and Doppler was performed. The study was technically good in quality. Left Ventricle: The left ventricular size, thickness and function are normal. Ejection Fraction = 60-65%. A variety of Doppler measurements indicate normal left ventricular diastolic function. No left ventricular thrombus or mass is seen. Left Atrium: The left atrium appears normal in size. The atrial septum appears normal. Right Atrium: The right atrium appears normal in size. Right Ventricle: The right ventricular size, thickness and function are normal. Aortic Valve: The aortic valve is normal in structure and function. Mitral Valve: The mitral valve leaflets appear normal. There is no evidence of stenosis, fluttering, or prolapse. There is trace mitral regurgitation. Tricuspid Valve: The tricuspid valve is normal. There is trace tricuspid regurgitation. Pulmonic Valve: The pulmonic valve is not well visualized. Arteries: The aortic root is normal size. The aortic arch was visualized and no abnormalities were seen. Pericardium/Pleura: No pericardial effusion seen. There is no pleural effusion. IVC/Hepatic Viens: The inferior vena cava is normal in size, with a normal collapsibility index. Measurements with Normals IVSd: 0.99 cm (0.7-1.1 cm)LVIDd: 5.2 cm (3.7-5.4 cm) LVPWd: 1.0 cm (0.7-1.1 cm)LVIDs: 3.6 cm (2.3-3.6 cm) LA dimension: 4.2 cm (2.3-4.0 cm)Ao root diam: 3.5 cm(2.0-3.6 cm) asc Aorta Diam: 3.1 cm(2.1-3.4cm) Doppler with Normals RVSP(TR): 33.8 mmHg (18-35mmHg) MV E max claudia: 94.3 cm/sec(0.8-1.3m/s) MV A max claudia: 93.0 cm/sec(0.0-0.0m/s) MV E/A: 1.0 (<1.5) MMode/2D Measurements Calculations RVDd: 3.0 cm FS: 30.5 % Ao root area: LVOT diam: 2.4 cm TAPSE: 2.4 cm EDV(Teich): 9.7 cm2 LVOT area: 4.7 cm2 RV S Claudia: 130.8 ml 13.9 cm/sec ESV(Teich): 55.5 ml EF(Teich): 57.6 % __ LVLd ap4: 8.1 cm SV(MOD-sp4): LAV(MOD-sp4): LA A2 area: 21.9 cm2 EDV(MOD-sp4): 52.7 ml 34.1 ml 79.0 ml LAV(MOD-sp2): LA A4 area: 14.6 cm2 LVLs ap4: 6.0 cm 67.6 ml LA length (vol): ESV(MOD-sp4): 4.5 cm 26.3 ml LA vol: 59.9 ml EF(MOD-sp4): 66.7 % LA vol index: 24.6 ml/m2 Doppler Measurements Calculations MV dec time: MV max PG: E/E' lat: 8.3 MV dec slope: 0.23 sec 89.0 mmHg E/E' med: 10.1 415.1 cm/sec2 __ MR max claudia: TV max PG: TR max claudia: 471.4 cm/sec 29.0 mmHg 268.5 cm/sec MR max PG: TR max P.9 mmHg 28.8 mmHg RAP systole: 5.0 mmHg __ Transcribed By: SCV Performed At: 09/29/22 1032 Signed By: Rosas Still MD 09/29/[address] [facility] Troponin I High Sensitivityo n 09-29-2022 Troponin I High Sensitivity 90002 pg/mL Off scale high 0-20 [facility] Comment on above: Result Comment: Resu lts called at 0611 on 09/29/22 PERFORMED BY: [place] [address] PATHOLOGIST EPIC BEACON ANALYST RACHEL MCCORMICK M.D. Performed By: #### C BC, BMP #### [address] BNPon 09-28-2022 Natriuretic peptide B (Bld) [Mass/Vol] 20.0 pg/mL Normal <=900.0 [facility] Comment on above: Performed By: #### H STROPN, BMP, BNP #### [facility] [address] [address] [address] David Mabry CBC AUTO DIFFon 09-28-2022 BASO # 0.1 103/ul Normal 0.0-0.1 [facility] Comment on above: Performed By: #### C BC #### [facility] [address] [place] [address] [address] David Mabry Basophils/100 WBC (Bld) 0.3 % Normal 0.2-2.0 [facility] Comment on above: Performed By: #### C BC #### [facility] [address] [place] [address] Dr. David Mabry EO # 0.0 103/ul Normal 0.0-0.7 [facility] Comment on above: Performed By: #### C BC #### [facility] [address] [place] [address] Dr. David Mabry Eosinophils/100 WBC (Bld) 0.2 % Critically low 0.9-7.0 [facility] Comment on above: Performed By: #### C BC #### [facility] [address] [place] [address] Dr. David Mabry Erythrocyte distribution width (RBC) [Ratio] 12.3 % Normal 11.0-15.0 [facility] Comment on above: Performed By: #### C BC #### [facility] [address] [place] [address] Dr. David Mabry Hematocrit (Bld) [Volume fraction] 46.4 % Normal 42.0-54.0 [facility] Comment on above: Performed By: #### C BC #### [facility] [address] [place] [address] Dr. David Mabry Hemoglobin (Bld) [Mass/Vol] 16.3 g/dL Normal 14.0-18.0 [facility] Comment on above: Performed By: #### C BC #### [facility] [address] [place] [address] Dr. David Mabry IG # 0.07 10e3/ul Critically high 0.00-0.03 [facility] Comment on above: Performed By: #### C BC #### [facility] [address] [place] [address] Dr. David Mabry IG % 0.4 % Normal 0.0-0.5 [facility] Comment on above: Performed By: #### C BC #### [facility] [address] [place] [address] Dr. David Mabry LYMPH # 2.2 103/ul Normal 1.2-3.8 [facility] Comment on above: Performed By: #### C BC #### [facility] [address] [place] [address] Dr. David Mabry Lymphocytes/100 WBC (Bld) 11.5 % Critically low 20.5-60.0 [facility] Comment on above: Performed By: #### C BC #### [facility] [address] [place] [address] Dr. David Mabry MANUAL DIFF REQ NO Normal [facility] Comment on above: Performed By: #### C BC #### [facility] [address] [place] [address] Dr. David Mabry MCH (RBC) [Entitic mass] 30.9 pg Normal 25.9-34.0 [facility] Comment on above: Performed By: #### C BC #### [facility] [address] [place] [address] Dr. David Mabry MCHC (RBC) [Mass/Vol] 35.1 g/dL Normal 29.9-35.2 [facility] Comment on above: Performed By: #### C BC #### [facility] [address] [place] [address] Dr. David Mabry MCV (RBC) [Entitic vol] 88.0 fL Normal 80.0-94.0 [facility] Comment on above: Performed By: #### C BC #### [facility] [address] [place] [address] Dr. David Mabry MONO # 1.2 103/ul Critically high 0.3-0.8 [facility] Comment on above: Performed By: #### C BC #### [facility] [address] [place] [address] Dr. David Mabry Monocytes/100 WBC (Bld) 6.4 % Normal 1.7-12.0 [facility] Comment on above: Performed By: #### C BC #### [facility] [address] [place] [address] Dr. David Mabry NEUT # 15.2 103/ul Critically high 1.4-6.5 [facility] Comment on above: Performed By: #### C BC #### [facility] [address] [place] [address] Dr. David Mabry Neutrophils/100 WBC (Bld) 81.2 % Critically high 43.0-75.0 [facility] Comment on above: Performed By: #### C BC #### [facility] [address] [address] [address] David Mabry Platelet mean volume (Bld) [Entitic vol] 9.9 fL Normal 9.5-13.5 [facility] Comment on above: Performed By: #### C BC #### [facility] [address] [address] [address] David Mabry PLT 346 103/ul Normal 150-450 [facility] Comment on above: Performed By: #### C BC #### [facility] [address] [address] [address] David Mabry RBC 5.27 106/ul Normal 4.70-6.10 [facility] Comment on above: Performed By: #### C BC #### [facility] [address] [address] [address] David Mabry WBC 18.8 103/ul Critically high 4.0-11.0 [facility] Comment on above: Performed By: #### C BC #### [facility] [address] [place] [address] Dr. David Mabry [facility]on SARS-CoV-2 (COVID-19) RNA NED+probe Ql (Unsp spec) Not detected Normal NOT DETECTED [facility] Comment on above: Result Comment: When diagnostic testing is negative, the possibility of a false negative should be considered in the context of a patient's recent exposures and the presence of clinical signs and symptoms consistent with SARS-CoV-2. This test is not yet approved or cleared by the [place] FDA. When there are no FDA-approved or cleared tests available, and other criteria are met, FDA can make tests available under an emergency access mechanism called an Emergency Use Authorization (EUA). The EUA for this test is supported by the Challenge of Health and Human Service's declaration that circumstances exist to justify the emergency use of in vitro diagnostics for the detection and/or diagnosis of the virus that causes COVID-19. This EUA will remain in effect for the duration of the COVID-19 declaration justifying emergency of IVDs, unless it is terminated or revoked by the FDA (after which the test may no longer be used). Performed By: #### C VDTBH #### [facility] [address] [place] [address] Dr. David Mabry PROF CHEM 8 (BAS METB)on Anion gap [Moles/Vol] 16.8 mmol/L Normal Th [facility] Comment on above: Performed By: #### H STROPN, BMP, BNP #### [facility] [address] [place] [address] Dr. David Mabry Calcium [Mass/Vol] 9.1 mg/dL Normal 8.5-10.1 [facility] Comment on above: Performed By: #### H STROPN, BMP, BNP #### [facility] [address] [place] [address] Dr. David Mabry Chloride [Moles/Vol] 100 mmol/L Normal 98-107 [facility] Comment on above: Performed By: #### H STROPN, BMP, BNP #### [facility] [address] [place] [address] Dr. David Mabry CO2 [Moles/Vol] 23.3 mmol/L Normal 21.0-32.0 [facility] Comment on above: Performed By: #### H STROPN, BMP, BNP #### [facility] [address] [place] [address] Dr. David Mabry Creatinine [Mass/Vol] 1.54 mg/dL Critically high 0.70-1.30 [facility] Comment on above: Performed By: #### H STROPN, BMP, BNP #### [facility] [address] [place] [address] Dr. David Mabry EGFR-AF KYRGYZ 58 mL/min/1.73m2 Critically low >=60 [facility] Comment on above: Performed By: #### H STROPN, BMP, BNP #### [facility] [address] [place] [address] Dr. David Mabry EGFR-NON AF KYRGYZ 48 mL/min/1.73m2 Critically low >=60 [facility] Comment on above: Performed By: #### H DONG, BMP, BNP #### [facility] [address] [address] [address] David Mabry Glucose [Mass/Vol] 249 mg/dL Critically high 74-106 T [facility] Comment on above: Performed By: #### H DONG, BMP, BNP #### [facility] [address] [address] [address] David Mabry Potassium [Moles/Vol] 4.1 mmol/L Normal 3.5-5.1 [facility] Comment on above: Performed By: #### H DONG, BMP, BNP #### [facility] [address] [address] [address] David Mabry Sodium [Moles/Vol] 136 mmol/L Normal 136-145 [facility] Comment on above: Performed By: #### H DONG, BMP, BNP #### [facility] [address] [address] [address] David Mabry Urea nitrogen [Mass/Vol] 19.0 mg/dL Critically high 7.0-18 .0 [facility] Comment on above: Performed By: #### H DONG, BMP, BNP #### [facility] [address] [address] [address] David Mabry Urea nitrogen/Creatinine [Mass ratio] 12.3 mg/mg Normal [facility] Comment on above: Performed By: #### H MARIELYPN, BMP, BNP #### [facility] [address] [address] [address] David Mabry PROTIMEon 09-28-2022 INR Coag (PPP) [Relative time] 1.11 {INR} Normal [facility] Comment on above: Performed By: #### P T, PTT ####[facility] [address] [address]Dr. David Mabry INR GUIDELINES SEE BELOW Normal [facility] Comment on above: Result Comment: REMBERTO RED INR: 2.0 - 3.0 CONDITIONS NOT LISTED BELOW 2.5 - 3.5 FOR PROSTHETIC HEART VALVE REPLACEMENT 2.5 - 3.5 RECURRENT THROMBOSIS Performed By: #### P T, PTT ####[facility] [address] [place], [place] [address]FuDr. David Mabry PT Coag (PPP) [Time] 11.7 s Critically high 9.0-11.6 [facility] Comment on above: Performed By: #### P T, PTT ####[facility] [address] [place], [place] [address]QfDr. David Mabry PTTon 09-28-2022 aPTT Coag (Bld) [Time] 23.8 s Normal 22.3-36.2 [facility] Comment on above: Performed By: #### P T, PTT #### [facility] [address] [place], [place] [address] Dr. David Mabry TROPONIN, HIGH SENSITIVITYon 09-28-2022 HSTROP 6.9 pg/mL Normal 4.0-76.1 [facility] Comment on above: Result Comment: CUT- OFF POINTS HAVE BEEN ESTABLISHED BASED ON THE FOURTH UNIVERSAL DEFINITIONS OF MYOCARDIAL INFARCTION. THE UPPER REFERENCE LIMIT (URL) OF TROPONIN, DEFINED THE 99TH PERCENTILE OF cTnI DISTRIBUTION IN A REFERENCE POPULATION, HAS BEEN CONFIRMED THE DECISION THRESHOLD FOR [place] DIAGNOSIS. Performed By: #### H STROPN, BMP, BNP #### [facility] [address] [place], [place] [address] Dr. David Mabry XR CHEST 1 Von 09-28-2022 XR CHEST 1 V EXAM: XR CHEST 1 V at 1625 hours HISTORY: CHEST PAIN, UNSPECIFIED COMPARISON: 04/18/2021 TECHNIQUE: AP supine portable chest x-ray FINDINGS: The heart is not enlarged and the vasculature is not distended. No acute infiltrate, effusion or pneumothorax is identified. The osseous structures are grossly intact. IMPRESSION: No acute infiltrate or evidence of cardiac decompensation. The overall appearance of the chest is unchanged. Electronically authenticated by: ROBBIE ATKINSON Date: 2022-09-28 17:06 Normal [facility] Reminderson 09-15-2022 Reminders -- From: Sandrita Charles LPN To: N - Clinical; Sent: 09/15/2022 08:45:20 EST Show up: 06/29/2027 07:00:00 EST Subject: colonoscopy recall Due Date/Time: 07/29/2027 07:00:00 EST Reminder/Recall Patient is due for colonoscopy 07/29/2027 due to history of tubular adenoma. Normal [facility] Pathology Noteon 08-03-2022 Pathology Note [id number] 8B#1.00CD:127 Normal [facility] Outside Colonoscopyon 2021 Outside Colonoscopy [id number] 1C#1.00CD:127 Normal [facility] Lab Reportson 07-28-2022 Lab Reports 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 [facility] CBC COMPLETE BLOOD COUNTon 0 - Erythrocyte distribution width (RBC) [Ratio] 12.1 % Normal 11.5-15.0 [facility] Comment on above: Order Comment: No: D o not add to previous draw Performed By: #### 5 [id number] #### [facility] [address] [place] [address], [facility] Hematocrit (Bld) [Volume fraction] 41.1 % Normal 39.0-50.0 [facility] Comment on above: Order Comment: No: D o not add to previous draw Performed By: #### 5 [id number] #### [facility] [address] [place] [address], [facility] Hemoglobin (Bld) [Mass/Vol] 13.8 g/dL Normal 13.0-17.0 [facility] Comment on above: Order Comment: No: D o not add to previous draw Performed By: #### 5 [id number] #### [facility] [address] [place] [address], [facility] MCH (RBC) [Entitic mass] 30.3 pg Normal 27.0-33.0 [facility] Comment on above: Order Comment: No: D o not add to previous draw Performed By: #### 5 [id number] #### [facility] [address] [place] [address], [facility] MCHC (RBC) [Mass/Vol] 33.6 g/dL Normal 32.0-35.0 [facility] Comment on above: Order Comment: No: D o not add to previous draw Performed By: #### 5 [id number] #### [facility] [address] [place] [address], [facility] MCV (RBC) [Entitic vol] 90.1 fL Normal 82.0-98.0 T juan m [facility] Comment on above: Order Comment: No: D o not add to previous draw Performed By: #### 5 [id number] #### [facility] [address] [place] [address], [facility] Nucleated RBC/100 WBC (Bld) [Ratio] 0 % Normal 0-0 [facility] Comment on above: Order Comment: No: D o not add to previous draw Performed By: #### 5 [id number] #### [facility] [address] [facility]. [address] PLAT CNT 232 10*3/uL Normal 150-400 [facility] Comment on above: Order Comment: No: D o not add to previous draw Performed By: #### 5 [id number] #### [facility] [address] [facility] [address] RBC (Bld) [#/Vol] 4.56 10*6/uL Normal 4.20-5.70 [facility] Comment on above: Order Comment: No: D o not add to previous draw Performed By: #### 5 [id number] #### [facility] [address] [facility] [place] [address], [facility] WBC (Bld) [#/Vol] 7.26 10*3/uL Normal 4.00-10.60 [facility] Comment on above: Order Comment: No: D o not add to previous draw Performed By: #### 5 [id number] #### [facility] [address] PROTHROMBIN TIMEon 9 INR Coag (PPP) [Relative time] 1.04 {INR} Normal 0.91-1.16 [facility] Comment on above: Order Comment: No: D o not add to previous draw Result Comment: ACCC P RECOMMENDED INR FOR WARFARIN THERAPY ------- CONDITION INR PROPHYLAXIS OF VENOUS THROMBOSIS 2-3 (HIGH-RISK SURGERY) TREATMENT OF VENOUS THROMBOSIS 2-3 TREATMENT OF PULMONARY EMBOLISM 2-3 PREVENTION OF SYSTEMIC EMBOLISM: 2-3 ACUTE MYOCARDIAL INFARCTION TISSUE HEART VALVES VALVULAR HEART DISEASE ATRIAL FIBRILLATION RECURRENT SYSTEMIC EMBOLISM MECHANICAL HEART VALVE 2.5-3.5 FROM: ORAL ANTICOAGULANTS. MECHANISM OF ACTION, CLINICAL EFFECTIVENESS, AND OPTIMAL THERAPEUTIC RANGE. CHEST 1995;108:231S-246S. Performed By: #### 5 [id number], [id number] #### [facility] [address] [place] [address], [facility] PT Coag (PPP) [Time] 13.6 s Normal 12.3-14.8 [facility] Comment on above: Order Comment: No: D o not add to previous draw Result Comment: ALL RESULTS MUST BE INTERPRETED WITH RESPECT TO BLOOD DRAWING ARTIFACT OR DILUTION ERROR OF ANTICOAGULANT AT THE TIME OF SAMPLING. Performed By: #### 5 [id number], [id number] #### [facility] [address] Vital Signs Date Time Vital Sign Value Performing Clinician Facility 06-28-2023 08:45-0500 Body height 193.04 cm David Majanoashley Other [facility] Other 06-28-2023 08:45-0500 Body mass index (BMI) [Ratio] 30.67 kg/m2 David Majanoashley Other [facility] Other 06-28-2023 08:45-0500 Body temperature 97.1 [degF] David Majanoashley Other [facility] Other 06-28-2023 08:45-0500 Body weight 114.31 kg David Majanoashley Other [facility] Other 06-28-2023 08:45-0500 Diastolic blood pressure 84 mm[Hg] David Majanoashley Other [facility] Other 06-28-2023 08:45-0500 Respiratory rate 20 /min David Majanoashley Other [facility] Other 06-28-2023 08:45-0500 SaO2% (BldA) [Mass fraction] 100 % David Holm Other [facility] Other 06-28-2023 08:45-0500 Systolic blood pressure 136 mm[Hg] David Holm Other [facility] Other 06-07-2023 11:45-0400 Body height 193.04 cm DO Yanick Ball Work Phone: [facility] 06-07-2023 11:44-0400 Diastolic blood pressure 80 mm[Hg] DO Yanick Ball Work Phone: [facility] 06-07-2023 11:44-0400 Heart rate 83 /min DO Yanick Ball Work Phone: [facility] 06-07-2023 11:44-0400 Respiratory rate 18 /min DO Yanick Ball Work Phone: [facility] 06-07-2023 11:44-0400 SaO2% (BldA) [Mass fraction] 95 % DO Yanick Ball Work Phone: [facility] 06-07-2023 11:44-0400 Systolic blood pressure 115 mm[Hg] DO Yanick Ball Work Phone: [facility] 06-07-2023 05:29-0400 Body weight 115.8 kg DO Yanick Ball Work Phone: [facility] 06-06-2023 19:44-0400 Body temperature 98.3 [degF] DO Yanick Ball Work Phone: [facility] 06-04-2023 04:38-0400 Inhaled oxygen flow rate 1 L/min DO Yanick Ball Work Phone: [facility] 03-02-2023 10:28-0400 Body height 193.04 cm Yanick E Ball Work Phone: [facility] 250 DO Work Phone: 03-02-2023 10:28-0400 Body mass index (BMI) [Ratio] 30.55 kg/m2 Yanick E Ball Work Phone: [facility] 250 DO Work Phone: 03-02-2023 10:28-0400 Body surface area Derived from formula 2.44 m2 Yanick E Ball Work Phone: [facility] 250 DO Work Phone: 03-02-2023 10:28-0400 Body weight 113.85 kg Yanick E Ball Work Phone: [facility] DO Work Phone: 03-02-2023 10:28-0400 Diastolic blood pressure 64 mm[Hg] Yanick E Ball Work Phone: [facility] DO Work Phone: 03-02-2023 10:28-0400 Heart rate 78 /min Yanick Au Ball Work Phone: [facility] DO Work Phone: 03-02-2023 10:28-0400 Systolic blood pressure 106 mm[Hg] Yanick E Ball Work Phone: [facility] DO Work Phone: 10-05-2022 16:14-0500 Body height 193.04 cm Yanick E Ball Work Phone: [facility] DO Work Phone: 10-05-2022 16:14-0500 Body mass index (BMI) [Ratio] 30.67 kg/m2 Yanick E Ball Work Phone: [facility] DO Work Phone: 10-05-2022 16:14-0500 Body surface area Derived from formula 2.44 m2 Yanick E Ball Work Phone: [facility] DO Work Phone: 10-05-2022 16:14-0500 Body weight 114.31 kg Yanick E Ball Work Phone: [facility] 250 DO Work Phone: 10-05-2022 16:14-0500 Diastolic blood pressure 58 mm[Hg] Yanick E Ball Work Phone: [facility] DO Work Phone: 10-05-2022 16:14-0500 Heart rate 72 /min Yanick E Ball Work Phone: [facility] DO Work Phone: 10-05-2022 16:14-0500 Systolic blood pressure 100 mm[Hg] Yanick Au Ball Work Phone: [facility] DO Work Phone: 09-29-2022 10:47-0500 65 1 Yanick Au Ball Work Phone: [facility] DO Work Phone: Comment on above: [id number] 07-05-2022 08:47-0500 Blood Pressure Location Mercedez GARDNERL [facility] [place] 07-05-2022 08:47-0500 Diastolic blood pressure 85 mm[Hg] Mercedez NILL [facility] [place] 07-05-2022 08:47-0500 Heart rate 87 /min Mercedez NILL [facility] [place] 07-05-2022 08:47-0500 Respiratory rate 16 /min Mercedez NILL [facility] [place] 07-05-2022 08:47-0500 Systolic blood pressure 120 mm[Hg] Mercedez NILL [facility] [place] 11-07-2021 00:50-0400 Body height 193 cm Violetta Springer DO Work Phone: [facility] 11-07-2021 00:50-0400 Body mass index (BMI) [Ratio] 31.04 kg/m2 Violetta Springer DO Work Phone: [facility] 11-07-2021 00:50-0400 Body temperature 97.81 [degF] Violetta Springer DO Work Phone: [facility] 11-07-2021 00:50-0400 Body weight 115.67 kg Violetta Springer DO Work Phone: [facility] 11-07-2021 00:50-0400 Diastolic blood pressure 92 mm[Hg] Violetta Springer DO Work Phone: [facility] 11-07-2021 00:50-0400 Heart rate 98 /min Violetta Springer DO Work Phone: [facility] 11-07-2021 00:50-0400 Respiratory rate 16 /min Violetta Springer DO Work Phone: [facility] 11-07-2021 00:50-0400 SaO2% (BldA) [Mass fraction] 96 % Violetta Springer DO Work Phone: [facility] 11-07-2021 00:50-0400 Systolic blood pressure 146 mm[Hg] Violetta Springer DO Work Phone: [facility] Encounters Encounter Date Encounter Type Care Provider Facility Start: 06-28-2023 End: 06-28-2023 ambulatory David Holm Other [facility] Other Start: 06-28-2023 Office outpatient vi sit 15 minutes Kamgulshan Holm [facility] Start: 06-19-2023 End: 06-19-2023 ambulatory Kamal Chaban Facility:[facility] Start: 06-19-2023 End: 06-19-2023 ambulatory DO Yanick Ball Work Phone: [facility] Work Phone: Start: 06-19-2023 End: 06-19-2023 Patient encounter procedure DO Yanick Haque Work Phone: [facility] [place] Work Phone: Start: 06-04-2023 End: 06-07-2023 Evaluation and management of inpatient Jose Phillips Facility:[facility] Start: 06-04-2023 End: 06-07-2023 Evaluation and management of inpatient DO Yanick Haque Work Phone: [facility] Work Phone: Start: 03-02-2023 Office outpatient vi sit 15 minutes Yanick Haque Work Phone: [facility] DO Work Phone: Start: 03-02-[address] Rosas Herbert Facility: Start: 10-05-2022 Patient encounter procedure Yanick Haque Work Phone: [facility] 250 DO Work Phone: Start: 10-05-2022 Transitional care diana jones vc 7 day discharge Yanick Haque Work Phone: [facility] 600 DO Work Phone: Start: 10-05-2022 ambulatory Fany Ying Bales Facility: Start: 09-29-[address] Yanick Haque Facility:[facility] Start: 09-28-2022 End: 09-29-2022 Evaluation and management of inpatient Ramu Nupur Facility:[facility] Start: 09-28-2022 End: 09-28-[address] JIAN Charles Facility: Start: 09-02-2022 End: 09-03-2022 ambulatory Mercedez WOODARD Facility: [facility] Start: 09-02-2022 End: 09-02-2022 Patient encounter procedure Mercedez WOODARD General Surgery [facility] Start: 07-30-2022 Encounter for preprocedural laboratory examination DR MERCEDEZ WOODARD . [facility] Start: 07-29-2022 End: 07-30-2022 ambulatory Mercedez WOODARD Facility:[id number] Start: 07-26-2022 End: 07-27-[address] MERCEDEZ WOODARD . Facility:[facility] Start: 07-26-2022 End: 07-27-2022 Encounter for preprocedural laboratory examination DR MERCEDEZ WOODARD . Facility: Start: 07-05-2022 End: 07-06-2022 ambulatory Mercedez WOODARD Facility:[facility] Start: 07-05-2022 End: 07-05-2022 Patient encounter procedure Mercedez WOODARD [facility] [place] Start: 06-30-2022 ambulatory Mercedez WOODARD Facility:[facility] Start: 06-21-2022 ambulatory Mercedez WOODARD Facility :[facility] Start: 01-29-2022 End: 01-29-[address] DANIELLA BALES Facility: Start: 11-07-2021 End: 11-07-2021 Emergency department patient visit Violetta Springer DO Work Phone: [facility] Emergency Dept Comment on above: Facial laceration, i nitial encounter (Primary Dx) Start: 03-09-2019 End: 03-10-2019 Evaluation and management of inpatient JENNY ROBERTSON Facility:[facility] Procedures Date Procedure Procedure Detail Performing Clinician Start: 06-19-2023 Plain chest X-ray DO Be njamin Ball Work Phone: Start: 06-07-2023 Plain chest X-ray DO Be njamin Ball Work Phone: Start: 06-06-2023 End: 06-06-2023 Plain chest X-ray DO Yanick Ball Work Phone: Start: 06-05-2023 CT of chest without contrast DO Yanick Ball Work Phone: Start: 06-05-2023 Plain chest X-ray DO Be njamin Ball Work Phone: Start: 06-04-2023 Plain chest X-ray DO Be njamin Ball Work Phone: Start: 07-21-2022 Total colonoscopy Chito Au Ball Work Phone: Start: 11-07-2021 LACERATION REPAIR Brenden Gonsalez DO Work Phone: Start: 03-09-2019 REPAIR FINGER NAIL, EXTERNAL APPROACH JENNY EBRAHEIM Start: 03-09-2019 REPOSITION RIGHT FIN FELISA PHALANX WITH INT FIX, PERC APPROACH JENNY EBRAHEIM Start: 03-08-2019 INTRODUCTION OF SERUM/TOX/VACCINE INTO MUSCLE, PERC APPROACH DONAL BARRAGAN Amputation of finger of right hand Mercedez GARDNERHarpal Comment on above: 3rd digit Appendectomy Mercedez GARDNERHarpal Appendectomy Yanick Angely Shabnam Work Phone: Finger operation Yanick Angely Shabnam Work Phone: History of placement of stent for coronary artery disease Status post insertion of drug eluting coronary artery stent Yanick Angely Shabnam Work Phone: History of tonsillectomy Jose dago WOODARD Tonsillectomy Yanick Angely fuller Work Phone: Plan of Treatment Date Care Activity Detail Author Start: 09-14-2023 FUV, Provider: Rosas Herebrt, Status: Pen, Time: 10:40 AM FUV, Provider: Rosas Herbert, Status: Pen, Time: 10:40 AM [facility] DO Work Phone: Start: 06-07-2023 [facility] Start: 06-04-[address] [facility] Start: 06-04-2023 Hospital admission [facility] Start: 12-20-2022 FUV, Provider: Rosas Herbert, Status: Pen, Time: 3:00 PM FUV, Provider: Rosas Herbert, Status: Pen, Time: 3:[address] [facility] 250 DO Work Phone: Start: 04-21-2021 Influenza vaccination Flu vaccine (# 1) [facility] Start: 1978 COVID-19 Vaccine (1) COVID-19 Vaccin e (1) [facility] [employer] Pro[facility] dures Routine 11/07/2021 1:09 AM EDT [facility] Work Phone: Patient referral [facility] Work Phone: XR Chest 2 Views [facility] Immunizations Immunization Date Immunization Notes Care Provider Cayden rashid 09-27-2016 diphtheria, tetanus toxoids and acellular pertussis vaccine, unspecified formulation David Holm Other [employer] Other Payers Date Payer Category Payer Self-pay [id number] Self-pay [id number] 1975 Unknown [id number] 2.16.8 [id number] 1973 Unknown [id number] 2.16.8 40.1.001039.3.579.2.727 1973 Unknown [id number] 2.16.8 40.1.017019.3.579.2.727 1973 Unknown [id number] 2.16.8 40.1.255924.3.579.2.727 1973 Unknown [id number] 2.16.8 40.1.474997.3.579.2.727 1973 Unknown [id number] 2.16.84 0.1.625692.3.579.2.593 1973 Unknown [id number] 2.16.84 0.1.949713.3.579.2.593 1973 Unknown [id number] 2.16.84 0.1.423129.3.579.2.593 1973 Unknown [id number] 2.16.84 0.1.458693.3.579.2.593 1973 Unknown [id number] 2.16. 840.1.464547.3.579.2.356 1973 Unknown [id number] 2.16. 840.1.880236.3.579.2.356 1973 Unknown [id number] 2.16. 840.1.329369.3.579.2.356 1959 Unknown [id number] 1959 Unknown [id number] 1959 Unknown [id number] Unknown Unknown [place] [employer]/[place] [id number] Unknown [id number] 2.16.8 [id number] Unknown [id number] 2.16.8 40.1.876750.3.579.2.531 Unknown [id number] 2.16.8 40.1.880818.3.579.2.531 Social History Date Type Detail Facility Start: 11-07-2021 End: 06-04-2023 Tobacco smoking status NHIS Never smoked tobacco [employer] Work Phone: Start: 11-07-2021 Tobacco use and exposure Smokeless tobacco non-user [employer] Work Phone: Start: 11-07-2021 Alcohol intake Current drinke r of alcohol (finding) [employer] Work Phone: Start: 1975 Sex Assigned At Not on file [facility] Work Phone: Start: 10-28-2021 End: 11-07-2021 Exposure to SARS-CoV-2 (event) Not sure [employer] Work Phone: Start: 07-05-2022 Tobacco smoking status Ex-smoker (fi nding) [facility] [place] Tobacco smoking status Never [facility] [place] Sex Assigned At Male [facility] Former smoker Former smoker [facility] 250 DO Work Phone: Comment on above: Quit in 2004; 1 liter of diet moun tain dew daily; Start: 1975 Sex Assigned At Male F [facility] Medical Equipment Procedure Code Equipment Code Equipment Original Text Equipment Identifier Dates [id number] FDA Start: 09-28-2022 [id number] FDA Start: 09-28-2022 [id number] FDA Start: 09-28-2022 [id number] FDA Start: 09-28-2022 Goals Date Patient Goal Desired Activity /State Functional Status Date Assessment Result Facility 06-07-2023 Functional status Patient at Baseline [facility] Work Phone: 07-05-2022 Functional Status N/A [facility] [place] Mental Status Date Assessment Result Facility 06-07-2023 Cognitive function Cognitive Sta tus Patient at Baseline [facility] Work Phone: Clinical Notes 11-06-2021 to 06-28-2023 Note Date & Type Note Facility 06-28-2023 Evaluation note Encounter Date Diagnosis Assessment Notes Jun, Primary spontaneous pneumothorax (ICD-10 - J93.11) Note for return to work please [employer] Other 10-18-2023 Progress note Author David Holm [facility] June 07, 2023 10:20am Note Date/Time June 07, 2023 1 0:21am [facility] [address] [place] [address] Pulmonology Progress Note Signed Patient: Demian Martinez MR#: [id number] : 1975 Acct:[id number] Age/Sex: 48 / M Adm Date: 3 Loc: 4N Room: [id number] Type: ADM IN Attending Dr: Jose Phillips DO Copies to: ~ Date of Service: 06/07/2023 Subjective Subjective Narrative: Patient feels better, reports mild pain at the chest tube site otherwise no respiratory difficulties or dyspnea on exertion. Hemodynamically stable, afebrile, chest x-ray showing moderate improvement in his pneumothorax compared to yesterday's film. Exam Physical Exam Vital Signs: Temp Pulse Resp BP Pulse Ox O2 Del Method O2 Flow Rate 98.3 F 92 H 18 130/88 95 Room Air 1 06/06/23 19:44 06/06/23 19:44 06/06/23 19:44 06/06/23 19:44 06/06/23 19:44 06/07/23 08:00 06/04/23 04:38 Narrative: General: Patient is alert awake responds appropriately in no distress Eyes: Pupils equal round reactive to light HEENT: Normocephalic, atraumatic, oral mucosa moist Neck: Supple no lymphadenopathy or thyromegaly Cardiovascular: S1, S2, normal sounds, no murmurs or gallops noted, regular rhythm Lungs: Adequate air entry bilaterally, clear to auscultation Extremities: No significant peripheral edema, peripheral pulses adequate Neurologic: Alert, awake, orientedx3, no focal weakness or speech abnormality Objective Intake and Output I&O - Last 24 Hours: Intake & Output 06/06/23 06/07/23 06/07/23 23:59 07:59 15:59 Intake Total 800 / 2240 480 / 480 Balance 800 / 1590 480 / 480 Weight 115.8 kg Labs 06/07/23 05:16 06/07/23 05:16 Assessment/Plan Assessment/Plan (1) Pneumothorax: Plan Patient is showing some improvement in the pneumothorax compared to yesterday without chest tube placement, certainly no worsening, and is conservative approach with outpatient x-ray and follow-up, avoiding exertion and strenuous activities, pushing lifting, etc. was discussed with the patient today at length. I put in for outpatient x-ray in 5 days, meanwhile patient developed worsening dyspnea he is advised to come back to the ER for evaluation Documented By: David Holm MD 06/07/23 1019 Signed By: <Electronically signed by David Holm MD> 06/07/23 1020 [facility] Work Phone: 1(517) 261-512410-17-2023 Progress note Author Jose Phillips [facility] June 06, 2023 3:46pm Note Date/Time June 06, 2023 1 2:19pm [facility] [address] [place] [address] Hospitalist Progress Note Signed Patient: Demian Martinez MR#: [id number] : 1975 Acct:[id number] Age/Sex: 48 / M Adm Date: 3 Loc: 4N Room: 0J2463-4 Type: ADM IN Attending Dr: Jose Phillips DO Copies to: ~ Date of Service: 06/06/2023 Subjective Subjective Narrative: Seen and examined at bedside, reports having a lot of pain overnight. Still reporting high level of pain, even after Toradol 15mg, will administer 15 more milligrams of Toradol now and utilize the hydrocodone as well. Denies chest pain or shortness of breath, on room air with oxygen saturations in the high 90s, afebrile. Remains hemodynamically stable. Exam Physical Exam Vital Signs: Temp Pulse Resp BP Pulse Ox O2 Del Method O2 Flow Rate 98.2 F 69 12 119/81 97 Room Air 1 06/06/23 07:49 06/06/23 07:49 06/06/23 07:49 06/06/23 07:49 06/06/23 07:49 06/06/23 08:00 06/04/23 04:38 Narrative: CONST-alert, awake and resting comfortably in bed CARDIAC-normal rate, regular rhythm, normal S1 & S2. PULM-CTA bilaterally, RA, no accessory muscle use or cough noted ABD - Soft. Bowel sounds are normal. No distention No tenderness EXTREM-no edema BLE calves nontender SKIN-dressing to right lateral chest wall clean dry and intact Objective Lab Results 06/05/23 06:09 06/05/23 06:09 Meds Allergies and Active Meds Allergies No Known Allergies Allergy (Verified 09/28/22 19:04) Active Meds: Active Medications Generic Name Dose Route Start Last Admin Trade Name Freq PRN Reason Stop Dose Admin Hydrocodone Bitart/Acetaminophen 1 tab 06/04/23 10:20 06/06/23 06:59 Hydrocodone/Acetaminophen 10-325 Mg Tablet PO 1 tab Q4H PRN Administration Pain Alprazolam 1 mg 06/05/23 12:34 06/06/23 07:00 Alprazolam 0.5 Mg Tablet PO 12/01/23 03:37 1 mg Q8H PRN Administration Anxiety Aspirin 81 mg 06/04/23 09:00 06/06/23 08:51 Aspirin 81 Mg Tab.Chew PO 06/03/24 08:59 81 mg DAILY MARYJANE Administration Atorvastatin Calcium 80 mg 06/04/23 21:00 06/05/23 21:03 Atorvastatin 80 Mg Tablet PO 06/03/24 20:59 80 mg QPM MARYJANE Administration Calcium Carbonate 1,000 mg 06/04/23 22:50 06/05/23 04:37 Calcium Carbonate 500 Mg Tab.Chew PO 06/03/24 22:49 1,000 mg Q4H PRN Administration Dyspepsia Enoxaparin Sodium 40 mg 06/04/23 10:00 06/06/23 10:22 Enoxaparin 40 Mg/0.4 Ml Syringe SUBCUT 06/03/24 09:59 Not Given DAILY@10 MARYJANE Ketorolac Tromethamine 15 mg 06/06/23 10:00 06/06/23 10:22 Ketorolac Tromethamine 15 Mg/Ml Vial IV-PUSH 06/11/23 09:59 15 mg Q8HR MARYJANE Administration Ketorolac Tromethamine 15 mg 06/06/23 12:03 Ketorolac Tromethamine 15 Mg/Ml Vial IV-PUSH 06/06/23 12:04 ONCE ONE Metoprolol Succinate 25 mg 06/04/23 09:00 06/06/23 08:51 Metoprolol Succinate 25 Mg Tab.Er.24h PO 06/03/24 08:59 25 mg DAILY MARYJANE Administration Ticagrelor 90 mg 06/04/23 09:00 06/06/23 08:51 Ticagrelor 90 Mg Tablet PO 06/03/24 08:59 90 mg BID MARYJANE Administration Valsartan 80 mg 06/04/23 22:00 06/05/23 21:03 Valsartan 80 Mg Tablet PO 06/03/24 21:59 80 mg QHS MARYJANE Administration A&P - Hospitalist Assessment/Plan (1) Pneumothorax: Plan: Spontaneous pneumothorax, unclear etiology Chest tube fell out, stable on room air with oxygen saturations in the high 90s. ?Pulmonary following, plans to observe today and repeat chest x-ray tomorrow, plan to discharge tomorrow if remains stable. ?CT chest with no subpleural blebs hold significant parenchymal pathology ?CXR this morning with no acute cardiopulmonary pathology ?Continue with pain management as needed MACIEL?likely prerenal due to poor oral intake ?Creatinine 1.51, baseline unknown. Last creatinine 1.46 on 09/29 ?Encourage increased oral intake ?Continue to monitor BMP Chronic conditions: CAD s/p stent placement in September?on aspirin, metoprolol, Brilinta, Diovan, atorvastatin DVT prophylaxis: Lovenox Plan Spontaneous right pneumothorax, unclear etiology Increased pain- possibly from a escaping through chest tube wound vs persistentbronchopleural fistula and air leak per pulmonary Continues to complain of uncontrolled pain, no shortness of breath, on room air with saturations in the high 90s ?Repeat chest x-ray from this morning demonstrating developing moderate right pneumothorax, pulmonary following, planning to observe overnight and if pneumothorax is improving can be discharged home tomorrow. Repeat chest x-ray in am ?CT chest with no subpleural blebs hold significant parenchymal pathology ?Continue with pain management with scheduled Toradol every 8 hours and hydrocodone every 4 hours as needed Type 2 diabetes new onset - A1C is 7.7 ?Start Accu-Cheks before meals and at bedtime, SSI, hypoglycemic protocol. A1c 7.7. Will transition to metformin on discharge ?Continue to monitor MACIEL?likely prerenal due to poor oral intake ?Creatinine 1.51, baseline unknown. Last creatinine 1.46 on 09/29 ?Encourage increased oral intake ?Continue to monitor BMP Chronic conditions: CAD s/p stent placement in September?on aspirin, metoprolol, Brilinta, Diovan, atorvastatin DVT prophylaxis: Lovenox ++++ ++++ When I rounded on the patient in the afternoon he was complaining of a sensationof dyspnea like I cannot get the oxygen in. I ordered a stat portable chest x- ray. It looks unchanged from the one that was done this morning. I told the patient that right now I do not see any change. He wonders if he could wear some supplemental oxygen by nasal cannula. I did tell him that would be okay todo from time to time and it may help some of the pneumothorax reabsorb. I discussed the case with the at the bedside. She noticed the A1C of 7.7. She says the patient has a history of Diabetes in the family. She has experience as a pharmacy sales assistant, and has worked in doctors offices. She is comfortable following up with his primary care physician regarding the diabetes. I told her that my advice would be that she start on metformin once he is over this pneumothorax and then gradually increase the dose of the metformin as tolerated. She is comfortable with doing Accu-Cheks and there is a glucometer at home. I personally saw this patient on the day of the encounter, reviewed the relevanthistory, performed the yanes elements of the physical exam, and discussed and formulated the plan of care with the Nurse Practitioner, and I confirm the NursePractitioner's documentation as written. - - - Jose Phillips DO. Internal Medicine + Hospitalist attending physician. Documented By: Meghan Camacho APRN 06/06/23 1207 Signed By: <Electronically signed by LEO Camacho> 06/06/23 1315 <Electronically signed by Jose Phillips DO> 06/06/23 1546 [facility] Work Phone: 1(258) 777-590310-17-2023 Progress note Author David Holm [facility] June 06, 2023 10:19am Note Date/Time June 06, 2023 1 0:19am [facility] [address] [place] [address] Pulmonology Progress Note Signed Patient: Demian Martinez MR#: [id number] : 1975 Acct:[id number] Age/Sex: 48 / M Adm Date: 3 Loc: Room: [address] [place] [address] Type: ADM IN Attending Dr: Joes Phillips DO Copies to: ~ Date of Service: 06/06/2023 Subjective Subjective Narrative: Patient reports having had pain last night, was upset because he was not gettingToradol injections when he asked for it, he was on [place] which according to him did not help. He denies shortness of breath but was uncomfortable with movementhaving significant pain. States that his pain is better today he has mild pain around his chest tube site. Remains on room air with good oxygen saturation currently at 97% afebrile with stable hemodynamic status. Chest x-ray today showed small to moderate persistent right-sided pneumothorax Exam Physical Exam Vital Signs: Temp Pulse Resp BP Pulse Ox O2 Del Method O2 Flow Rate 98.2 F 69 12 119/81 97 Room Air 1 10/17/23 07:49 06/06/23 07:49 06/06/23 07:49 06/06/23 07:49 06/06/23 07:49 06/06/23 07:49 06/04/23 04:38 Narrative: General: Patient is alert awake responds appropriately in no distress Eyes: Pupils equal round reactive to light HEENT: Normocephalic, atraumatic, oral mucosa moist Neck: Supple no lymphadenopathy or thyromegaly Cardiovascular: S1, S2, normal sounds, no murmurs or gallops noted, regular rhythm Lungs: Adequate air entry bilaterally, clear to auscultation Extremities: No significant peripheral edema, peripheral pulses adequate Neurologic: Alert, awake, orientedx3, no focal weakness or speech abnormality Objective Intake and Output I&O - Last 24 Hours: Intake & Output 06/05/23 06/06/23 06/06/23 23:59 07:59 15:59 Intake Total 240 / 1280 240 / 240 Balance 240 / 280 240 / 240 Weight 113.8 kg Labs 06/05/23 06:09 06/05/23 06:09 Assessment/Plan Assessment/Plan (1) Pneumothorax: Plan Patient had an inadvertent removal of chest tube yesterday before I saw him for follow-up, chest tube was kept out and patient was observed overnight he did well except for report of pain that increased last night, this is possibly air escaping in through his small chest tube wound as opposed to persistent bronchopleural fistula and air leak as he is improving clinically today. Given his clinical improvement and stable status I will observe him 1 more day in the hospital and obtain follow-up chest x-ray tomorrow. If pneumothorax is improving he can be discharged tomorrow, if not or if it is worse obviously willneed chest tube to be placed again. We will add Toradol 15 mg every 8 hours scheduled x3 doses as well for pain control Documented By: David Holm MD 06/06/23 101 Signed By: <Electronically signed by David Holm MD> 06/06/23 1019 [facility] Work Phone: 1(513) 368-770610-16-2023 Progress note Author Jose Phillips [facility] June 05, 2023 4:56pm Note Date/Time June 05, 2023 1 2:20pm [facility] [address] [place] [address] Hospitalist Progress Note Signed Patient: Demian Martinez MR#: [id number] : 1975 Acct:[id number] Age/Sex: 48 / M Adm Date: 3 Loc: Room: [address] [place] [address] Type: ADM IN Attending Dr: Jose Phillips DO Copies to: ~ Date of Service: 06/05/2023 Subjective Subjective Narrative: Seen and examined at bedside, reports having a lot of pain overnight and accidentally pulled out his chest tube. Currently resting comfortably in bed reporting a 5/10 pain level. On room air with oxygen saturations in the high 90s, afebrile. Remains hemodynamically stable. Exam Physical Exam Vital Signs: Temp Pulse Resp BP Pulse Ox O2 Del Method O2 Flow Rate 98.6 F 81 16 145/89 H 96 Room Air 1 06/05/23 09:00 06/05/23 03:22 06/05/23 09:00 06/05/23 09:00 06/05/23 09:00 06/05/23 09:05 06/04/23 04:38 Narrative: CONST-alert, awake and resting comfortably in bed CARDIAC-normal rate, regular rhythm, normal S1 & S2. PULM-CTA bilaterally, RA, no accessory muscle use or cough noted ABD - Soft. Bowel sounds are normal. No distention No tenderness EXTREM-no edema BLE calves nontender SKIN-dressing to right lateral chest wall clean dry and intact Objective Lab Results 06/05/23 06:09 06/05/23 06:09 Meds Allergies and Active Meds Allergies No Known Allergies Allergy (Verified 09/28/22 19:04) Active Meds: Active Medications Generic Name Dose Route Start Last Admin Trade Name Freq PRN Reason Stop Dose Admin Hydrocodone Bitart/Acetaminophen 1 tab 06/04/23 10:20 06/04/23 21:31 Hydrocodone/Acetaminophen 10-325 Mg Tablet PO 1 tab Q4H PRN Administration Pain Alprazolam 0.5 mg 06/04/23 03:38 06/05/23 09:16 Alprazolam 0.5 Mg Tablet PO 12/01/23 03:37 0.5 mg Q8H PRN Administration Anxiety Aspirin 81 mg 06/04/23 09:00 06/05/23 08:55 Aspirin 81 Mg Tab.Chew PO 06/03/24 08:59 81 mg DAILY MARYJANE Administration Atorvastatin Calcium 80 mg 06/04/23 21:00 06/04/23 21:31 Atorvastatin 80 Mg Tablet PO 06/03/24 20:59 80 mg QPM MARYJANE Administration Calcium Carbonate 1,000 mg 06/04/23 22:50 06/05/23 04:37 Calcium Carbonate 500 Mg Tab.Chew PO 06/03/24 22:49 1,000 mg Q4H PRN Administration Dyspepsia Enoxaparin Sodium 40 mg 06/04/23 10:00 06/05/23 11:17 Enoxaparin 40 Mg/0.4 Ml Syringe SUBCUT 06/03/24 09:59 Not Given DAILY@10 MARYJANE Hydromorphone HCl 1 mg 06/04/23 03:37 06/05/23 08:55 Hydromorphone 1 Mg/Ml Syringe IV-PUSH 1 mg Q4H PRN Administration Pain Metoprolol Succinate 25 mg 06/04/23 09:00 06/05/23 08:55 Metoprolol Succinate 25 Mg Tab.Er.24h PO 06/03/24 08:59 25 mg DAILY MARYJANE Administration Ticagrelor 90 mg 06/04/23 09:00 06/05/23 08:56 Ticagrelor 90 Mg Tablet PO 06/03/24 08:59 90 mg BID MARYJANE Administration Valsartan 80 mg 06/04/23 22:00 06/04/23 21:31 Valsartan 80 Mg Tablet PO 06/03/24 21:59 80 mg QHS MARYJANE Administration A&P - Hospitalist Assessment/Plan (1) Pneumothorax: Plan: Spontaneous pneumothorax, unclear etiology Chest tube fell out, stable on room air with oxygen saturations in the high 90s. ?Pulmonary following, plans to observe today and repeat chest x-ray tomorrow, plan to discharge tomorrow if remains stable. ?CT chest with no subpleural blebs hold significant parenchymal pathology ?CXR this morning with no acute cardiopulmonary pathology ?Continue with pain management as needed MACIEL?likely prerenal due to poor oral intake ?Creatinine 1.51, baseline unknown. Last creatinine 1.46 on 09/29 ?Encourage increased oral intake ?Continue to monitor BMP Chronic conditions: CAD s/p stent placement in September?on aspirin, metoprolol, Brilinta, Diovan, atorvastatin DVT prophylaxis: Lovenox Plan Spontaneous pneumothorax, unclear etiology Chest tube fell out, stable on room air with oxygen saturations in the high 90s. ?Pulmonary following, plans to observe today and repeat chest x-ray tomorrow, plan to discharge tomorrow if remains stable. ?CT chest with no subpleural blebs hold significant parenchymal pathology ?CXR this morning with no acute cardiopulmonary pathology ?Continue with pain management as needed MACIEL?likely prerenal due to poor oral intake ?Creatinine 1.51, baseline unknown. Last creatinine 1.46 on 09/29 ?Encourage increased oral intake ?Continue to monitor BMP Chronic conditions: CAD s/p stent placement in September?on aspirin, metoprolol, Brilinta, Diovan, atorvastatin DVT prophylaxis: Lovenox ++++ ++++ I personally saw this patient on the day of the encounter, reviewed the relevanthistory, performed the yanes elements of the physical exam, and discussed and formulated the plan of care with the Nurse Practitioner, and I confirm the NursePractitioner's documentation as written. - - - Jose Phillips DO. Internal Medicine + Hospitalist attending physician. Documented By: Meghan Camacho APRN 06/05/23 1219 Signed By: <Electronically signed by LEO Camacho> 06/05/23 1241 <Electronically signed by Jose Phillips DO> 06/05/23 0306 [facility] Work Phone: 1(131) 121-775110-16-2023 Progress note Author David Holm [facility] June 05, 2023 11:17am Note Date/Time June 05, 2023 1 1:17am [facility] [address] [place] [address] Pulmonology Progress Note Signed Patient: Demian Martinez MR#: [id number] : 1975 Acct:[id number] Age/Sex: 48 / M Adm Date: 3 Loc: 4N Room: [address] [place] [address] Type: ADM IN Attending Dr: Jose Phillips DO Copies to: ~ Date of Service: 06/05/2023 Subjective Subjective Narrative: Patient is doing well today, states that he was rolling in bed and felt that thetube fell out but still under his occlusive dressing, I took the tape and dressings off and the tip of his tube was outside the wound completely. His chest x-ray and CT of the chest today showed no pneumothorax Exam Physical Exam Vital Signs: Temp Pulse Resp BP Pulse Ox O2 Del Method O2 Flow Rate 98.6 F 81 16 145/89 H 96 Room Air 1 06/05/23 09:00 06/05/23 03:22 06/05/23 09:00 06/05/23 09:00 06/05/23 09:00 06/05/23 09:00 06/04/23 04:38 Narrative: General: Patient is alert awake responds appropriately in no distress Eyes: Pupils equal round reactive to light HEENT: Normocephalic, atraumatic, oral mucosa moist Neck: Supple no lymphadenopathy or thyromegaly Cardiovascular: S1, S2, normal sounds, no murmurs or gallops noted, regular rhythm Lungs: Adequate air entry bilaterally, clear to auscultation Extremities: No significant peripheral edema, peripheral pulses adequate Neurologic: Alert, awake, orientedx3, no focal weakness or speech abnormality Objective Intake and Output I&O - Last 24 Hours: Intake & Output 06/04/23 06/05/23 06/05/23 23:59 07:59 15:59 Intake Total 1150 / 2390 480 / 480 Output Total 900 / 1850 1000 / 1000 Balance 250 / 540 -520 / -520 Weight 116.2 kg Labs 06/05/23 06:09 06/05/23 06:09 Assessment/Plan Assessment/Plan (1) Pneumothorax: Plan CT was reviewed, no evidence of subpleural blebs or other parenchymal pathology that could be responsible for his spontaneous pneumo. He has some dependent atelectasis otherwise CT was unremarkable. Chest tube was out already, will observe today and repeat chest x-ray tomorrow before discharge Documented By: David Holm MD 06/05/231113 Signed By: <Electronically signed by David Holm MD> 06/05/23 1119 [facility] Work Phone: 1(605) 636-642610-15-2023 Progress note Author David Hannon [facility] June 04, 2023 4:25pm Note Date/Time June 04, 2023 1 0:04am [facility] [address] [place] [address] Hospitalist Progress Note Signed Patient: Demian Martinez MR#: [id number] : 1975 Acct:[id number] Age/Sex: 48 / M Adm Date: 3 Loc: 4N Room: [address] [place] [address] Type: ADM IN Attending Dr: David Hannon MD Copies to: ~ Date of Service: 06/04/2023 Subjective Subjective Narrative: Seen and examined at bedside, reporting severe costovertebral pain, despite being recently medicated. Denies chest pain, on room air with oxygen saturations in the high 90s. No fever, chills. Exam Physical Exam Vital Signs: Temp Pulse Resp BP Pulse Ox O2 Del Method O2 Flow Rate 97.7 F 82 18 133/88 97 Room Air 1 06/04/23 08:04 06/04/23 08:04 06/04/23 08:04 06/04/23 08:04 06/04/23 08:04 06/04/23 08:12 06/04/23 04:38 Narrative: CONST-sleeping, easily arousable CARDIAC-normal rate, regular rhythm, normal S1 & S2. PULM-CTA bilaterally, RA, no accessory muscle use or cough noted ABD - Soft. Bowel sounds are normal. No distention No tenderness EXTREM-no edema BLE calves nontender SKIN- W/D good turgor Objective Lab Results 06/04/23 07:46 06/04/23 07:46 Meds Allergies and Active Meds Allergies No Known Allergies Allergy (Verified 09/28/22 19:04) Active Meds: Active Medications Generic Name Dose Route Start Last Admin Trade Name Freq PRN Reason Stop Dose Admin Alprazolam 0.5 mg 06/04/23 03:38 06/04/23 08:20 Alprazolam 0.5 Mg Tablet PO 12/01/23 03:37 0.5 mg Q8H PRN Administration Anxiety Aspirin 81 mg 06/04/23 09:00 06/04/23 08:16 Aspirin 81 Mg Tab.Chew PO 06/03/24 08:59 81 mg DAILY MARYJANE Administration Atorvastatin Calcium 80 mg 06/04/23 21:00 Atorvastatin 80 Mg Tablet PO 06/03/24 20:59 QPM MARYJANE Enoxaparin Sodium 40 mg 06/04/23 10:00 Enoxaparin 40 Mg/0.4 Ml Syringe SUBCUT 06/03/24 09:59 DAILY@10 MARYJANE Hydromorphone HCl 1 mg 06/04/23 03:37 06/04/23 08:15 Hydromorphone 1 Mg/Ml Syringe IV-PUSH 1 mg Q4H PRN Administration Pain Metoprolol Succinate 25 mg 06/04/23 09:00 06/04/23 08:16 Metoprolol Succinate 25 Mg Tab.Er.24h PO 06/03/24 08:59 25 mg DAILY MARYJANE Administration Ticagrelor 90 mg 06/04/23 09:00 06/04/23 08:16 Ticagrelor 90 Mg Tablet PO 06/03/24 08:59 90 mg BID MARYJANE Administration Valsartan 80 mg 06/04/23 22:00 Valsartan 80 Mg Tablet PO 06/03/24 21:59 QHS MARYJANE A&P - Hospitalist Assessment/Plan (1) Pneumothorax: Plan: Spontaneous pneumothorax, unclear etiology ?On room air with saturations in the high 90s, chest tube intact ?CXR this morning with no acute cardiopulmonary pathology ?Pulmonary consult pending ?Continue with pain management as needed MACIEL?likely prerenal due to poor oral intake ?Creatinine 1.51, baseline unknown. Last creatinine 1.46 on 09/29 ?Encourage increased oral intake ?Continue to monitor BMP Chronic conditions: CAD s/p stent placement in September?on aspirin, metoprolol, Brilinta, Diovan, atorvastatin DVT prophylaxis: Lovenox Plan Attending attestation: Patient was personally seen by me on the day of encounter. I reviewed his history and performed yanes elements of exam and formulated the plan of care and confirmed the nurse practitioners note above. Plan of care reports my direct input Documented By: Meghan Camacho APRN 06/04/23 1002 Signed By: <Electronically signed by LEO Camacho> 06/04/23 1259 <Electronically signed by David Hannon MD> 06/04/23 1430 [facility] Work Phone: 1(935) 740-119410-15-2023 Consult note Author Jacob Amaya [facility] June 04, 2023 12:02pm Note Date/Time June 04, 2023 1 0:46am [facility] [address] [place], [place] [id number] Pulmonology Consult Note Signed Patient: Demian Martinez MR#: [id number] : 1975 Acct:[id number] Age/Sex: 48 / M Adm Date: 3 Loc: 4N Room: 6L6544-8 Type: ADM IN Attending Dr: David Hannon MD Copies to: DO Jacob Tomas, DO David Hannon MD~ HPI Date/Time of Consultation: Date of Service: 06/04/2023 Time of Service: 10:45 Consulting Provider: Jacob Amaya Requesting Provider: David Hannon Reason for Consult: Pneumothorax History of Present Illness History of present illness: The patient is a 48-year-old male, with a history as outlined below, who presented as a transfer of care on June 04 from [facility] ED after presenting there with chest pain. The patient reported that he got up from eating last evening and immediately experienced acute onset chest discomfort. He denied any prior episodes similar to this in the past. Although, he does have a history ofcoronary artery disease status post PCI. The patient reported that he is a non-smoker. He denied any recent trauma. As part of his work-up at [place] emergency department, chest imaging was obtained and demonstrated a right-sided pneumothorax, for which the patient underwent chest tube placement. Follow-up chest imaging demonstrated resolutionof the pneumothorax. He was subsequently transferred here for management of hischest tube. This morning, the patient continues to report pain at the chest tube insertion site. He is otherwise stable from a clinical perspective. He has never experienced a prior pneumothorax in the past. The patient has been maintained on wall suction overnight. Follow-up chest imaging from this morning demonstrated no discernible pneumothorax. There is no air leak present in the Pleur-evac. Review of Systems Review of Systems All other systems reviewed & are negative unless noted below or in HPI [facility] Medical History (Updated 06/04/23 @ 03:54 by Baldemar Savage MD) HLD (hyperlipidemia) HTN (hypertension) Recent heart attack Sep 2022 Surgical History History of heart artery stent 2 Heart stents placed Family History (Updated 06/04/23 @ 02:43 by Odalis Davis, RN) Son No problems noted. Mother Diabetes Social History Smoking Status: Never smoker Substance Use Type: None Meds Medications and Allergies Allergies No Known Allergies Allergy (Verified 09/28/22 19:04) Home Medications aspirin 81 mg chewable tablet (Children's Aspirin) 81 mg PO DAILY 90 days #90 tabs 09/29/22 [Rx Confirmed 06/04/23] atorvastatin 80 mg tablet 80 mg PO QPM 30 days #30 tabs 09/29/22 [Rx Confirmed 06/04/23] metoprolol succinate 25 mg tablet,extended release 24 hr (Toprol XL) 25 mg PO DAILY 30 days #30 tabs 09/29/22 [Rx Confirmed 06/04/23] nitroglycerin 0.4 mg sublingual tablet 0.4 mg sublingual Q5M PRN Chest Pain 30 days #25 tabs 09/29/22 [Rx] ticagrelor 90 mg tablet (Brilinta) 90 mg PO BID 90 days #180 tabs 09/29/22 [Rx Confirmed 06/04/23] valsartan 40 mg tablet 80 mg PO QHS 30 days #60 tabs 09/29/22 [Rx Confirmed 06/04/23] Exam Physical Exam Vital Signs: Temp Pulse Resp BP Pulse Ox O2 Del Method O2 Flow Rate 97.7 F 82 18 133/88 97 Room Air 1 06/04/23 08:04 06/04/23 08:04 06/04/23 08:04 06/04/23 08:04 06/04/23 08:04 06/04/23 08:12 06/04/23 04:38 Narrative: General: No acute distress. Resting comfortably in bed. Head: Normocephalic and atraumatic. Eyes: PERRLA. Neck: Supple. Trachea midline. Mouth: Moist mucous membranes. Pulmonary: Stable right-sided chest tube in place. No air leak in the Pleur- evac. Lungs are clear bilaterally. Cardiovascular: Regular rate and rhythm. Normal S1 and S2. No M/R/G Abdomen: Soft, nontender and nondistended. Skin: Intact. Warm and dry. No lesions. Extremities: No clubbing, cyanosis or edema. Neurological: No focal deficits. Results Intake and Output I&O - Last 24 Hours: Intake & Output 06/03/23 06/04/23 06/04/23 23:59 07:59 15:59 Intake Total 400 / 400 Output Total 0 / 950 950 / 950 Balance 400 / -550 -950 / -550 Weight 116.3 kg Labs 06/04/23 07:46 06/04/23 07:46 Assessment/Plan (1) Pneumothorax: Plan The patient is hospital day #1 after presenting as a transfer from [place] emergency department with chest discomfort secondary to a spontaneous pneumothorax. The patient denied any pre-existing lung conditions or prior history of pneumothorax. He denied any recent trauma. The patient ultimately underwent chest tube placement with subsequent resolution of the pneumothorax. He has been maintained on wall suction overnight. At this time, the patient will be transitioned to [facility], with plans to obtain a follow-up chest x-ray in the morning. In addition, will obtain a CT chest to evaluate for any parenchymal lung abnormalities that may have contributed to his pneumothorax. Continue current pain control regimen. Documented By: Jacob Amaya DO 06/04/23 1045 Signed By: <Electronically signed by Jacob Amaya DO> 06/04/23 1202 [facility] Work Phone: 1(230) 200-708710-15-2023 History and physical note Author Baldemar Savage [facility] June 04, 2023 3:57am Note Date/Time June 04, 2023 3 :55am [facility] [address] [place] [address] Hospitalist H&P Signed Patient: Demian Martinez MR#: [id number] : 1975 Acct:[id number] Age/Sex: 48 / M Adm Date: 3 Loc: 4N Room: 7R5887-1 Type: ADM IN Attending Dr: Baldemar Savage MD Copies to: DO Baldemar Tomas MD~ HPI DATE OF EXAMINATION: 06/04/23 CHIEF COMPLAINT: Chest pain HISTORY OF PRESENT ILLNESS: This is a 48-year-old male with history of coronary artery disease/stents and September,, who presented to [facility] ED for evaluation of chest pain. The patient was at rest when he started to have sudden onset sharp right-sided chest pain associated with some shortness of breath. Pain was 10 out of 10 in severity with no relieving factors. When he arrived to the emergency room, chest x-ray showed right-sided pneumothorax, a 9 Greenlandic chest tube was inserted with full expansion of the lung for repeat chest x-ray. He was transferred to [facility] for further management. He complains of severe pain at the site and has high anxiety level Review of Systems Review of Systems All other systems reviewed & are negative unless noted below or in HPI [facility] Medical History (Updated 06/04/23 @ 03:54 by Baldemar Savage MD) HLD (hyperlipidemia) HTN (hypertension) Recent heart attack Sep 2022 Surgical History History of heart artery stent 2 Heart stents placed Family History (Updated 06/04/23 @ 02:43 by Odalis Davis, DAMIEN) Son No problems noted. Mother Diabetes Social History Smoking Status: Never smoker Substance Use Type: None Meds Medications and Allergies Allergies No Known Allergies Allergy (Verified 09/28/22 19:04) Home Medications aspirin 81 mg chewable tablet (Children's Aspirin) 81 mg PO DAILY 90 days #90 tabs 09/29/22 [Rx Confirmed 06/04/23] atorvastatin 80 mg tablet 80 mg PO QPM 30 days #30 tabs 09/29/22 [Rx Confirmed 06/04/23] metoprolol succinate 25 mg tablet,extended release 24 hr (Toprol XL) 25 mg PO DAILY 30 days #30 tabs 09/29/22 [Rx Confirmed 06/04/23] nitroglycerin 0.4 mg sublingual tablet 0.4 mg sublingual Q5M PRN Chest Pain 30 days #25 tabs 09/29/22 [Rx] ticagrelor 90 mg tablet (Brilinta) 90 mg PO BID 90 days #180 tabs 09/29/22 [Rx Confirmed 06/04/23] valsartan 40 mg tablet 80 mg PO QHS 30 days #60 tabs 09/29/22 [Rx Confirmed 06/04/23] Exam Physical Exam Vital Signs: Temp Pulse Resp BP Pulse Ox O2 Del Method O2 Flow Rate 97.8 F 67 16 135/91 100 Nasal Cannula 2 06/04/23 02:19 06/04/23 02:19 06/04/23 02:19 06/04/23 02:19 06/04/23 02:19 06/04/23 02:57 06/04/23 02:57 Narrative: Patient is awake and alert, oriented to place, time and person HEENT: pink conjunctiva and normal buccal mucosa Neck: supple, no tenderness Endocrine: no thyromegaly Vascular: No JVD or carotid bruit Lymphatic: no cervical lymphadenopathy Chest: CTA bilaterally, right sided chest tube in place Heart: RRR, no extra sounds or murmurs Abd: soft NT, no rebound or rigidity, increased abdominal girth, therefore, clinically I could not exclude the possibility of intra-abdominal mass or organomegaly Ext: no cyanosis or clubbing, no varices or edema Neuro: A&O x3, normal speech comprehension and attention, normal and symmetricalmotor and tone examination throughout Assessment & Plan Assessment/Plan (1) Pneumothorax: Plan Spontaneous pneumothorax Obesity, CAD/stents Plan: Dilaudid for pain, Xanax for anxiety Consult pulmonology for management of chest tube DVT prophylaxis IP vs OBS Justification Based on differential dx, clinical care plan, and risk of adverse events, if untreated, in my clinical judgement this patient requires an acute care setting as: INPATIENT because of an expectation of an over 2 midnight stay. Estimated length of stay (# of days): 3 Documented By: Baldemar Savage MD 06/04/23350 Signed By: <Electronically signed by Baldemar Savage MD> 06/04/23356 [facility] Work Phone: 1(347) 485-602402-08-2023 History of Present illness Narrative* Patient presents to the office today ambulatory with steady gait, is accompanied by his . * Sep 28, 2022 to [facility] with sudden onset chest pain; lifeflight to [facility] [place] d/t inferior STEMI with urgent management Dr Espitia. Post-procedure LVEF normalized. Uneventful hospitalization. All medications werenew at time of discharge. * Patient reports on day of admit he was simply driving to the bank when he noted a sudden onset of crushing chest pain. In retrospect he denies any exertional symptoms but probably over the last 4 months has felt tired all the time . His right radial cath site has healed without adverse sequela, the re is some resolving ecchymosis. He denies any additional chest discomfort. * He is tolerating additions to medical regimen without reported side effects: * Brilinta no dyspnea, it is affordable. Reviewed importance of DAPT. * High intensity statin without myalgia. * Beta-alton/ARB without symptomatic hypotension. 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 * Referral to cardiac rehab has been sent in, he is preferring [facility] rather than [facility]. * Admit creatinine 1.4, AST 114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
[2023-09-24 21:33] VITALS: BP 122/73; PULSE 100; RESP 12; TEMP 36.3; O2SAT 96; BMI 30.4
--- NOTE | 2023-09-24 21:36 | XR_ITS ---
The [address] [address] Patient Name: DEMIAN PEREZ MRN: [id number] date: 1975 Sex: M Assigned Patient Location: ER Current Patient Location: ER Accession/Order Number: [id number] Exam Date: 09/24/2023 21:40 Report Date: 09/24/2023 22:16 At the request of: JIAN HOLLAND Procedure: XR chest 1V EXAM: XR chest 1V TECHNIQUE: Single AP view chest HISTORY: cough COMPARISON: 06/03/2023 FINDINGS: The heart and mediastinum are unremarkable. There is hazy increased opacity over the left lower lung field. Osseous structures are intact. XR/XR chest 1V IMPRESSION: Increased haziness of left lung base may suggest developing pneumonia. Electronically authenticated by: PABLO LOVE Date: 09/24/2023 22:16
[2023-09-24 21:48] VITALS: BMI 30.3
[2023-09-24 21:49] VITALS: BP 122/73; PULSE 96; RESP 18; O2SAT 93
--- NOTE | 2023-09-24 21:52 | ED.GENADUL1 ---
HPI - General Adult General Chief complaint: Upper Respiratory Infection Stated complaint: FLU Time Seen by Provider: 09/24/23 21:19 Source: patient Mode of arrival: walk-in Limitations: no limitations History of Present Illness HPI narrative: Fpm-oiwddpt-jtayiiiqz diabetic male presents with approximately 7 days of flulike symptoms. Partner tested positive for influenza a 3 days ago. Patient likely has same infection. He states his cough and shortness of breath has worsened. He also suddenly developed a hive-like skin reaction about an hour ago. Only new meds are theraflu and mucinex - plus what he takes regularly. He takes aspirin and Brilinta for CAD. Also on statin and both metoprolol & valsartan for HTN/CAD. Related Data Home Medications Medication Instructions Recorded Confirmed aspirin 81 mg chewable tablet 1 tab PO QDAY 09/24/23 09/24/23 atorvastatin 80 mg tablet 80 mg PO QDAY 09/24/23 09/24/23 metformin 500 mg tablet 500 mg PO QDAY 09/24/23 09/24/23 metoprolol succinate 25 mg 25 mg PO QDAY 09/24/23 09/24/23 tablet,extended release 24 hr testosterone cypionate 200 mg/mL 150 mg IM Q7D 09/24/23 09/24/23 intramuscular oil ticagrelor 90 mg tablet (Brilinta) 90 mg PO QDAY 09/24/23 09/24/23 valsartan 40 mg tablet 40 mg PO QDAY 09/24/23 09/24/23 Previous Rx's Medication Instructions Recorded bamqutfqhkyyegx-lnfmltexquidfec-CG 5 ml PO Q6H PRN cough #118 mL 09/24/23 2 mg-30 mg-10 mg/5 mL oral syrup (Bromfed DM) levofloxacin 750 mg tablet 750 mg PO DAILY 5 days #5 tabs 09/24/23 Allergies Allergy/AdvReac Type Severity Reaction Status Date / Time No Known Drug Allergies Allergy Verified 09/24/23 21:33 [facility] Medical History (Updated 09/24/23 @ 23:11 by Lucho Ruiz) Myocardial infarction ?I21.9 - Acute myocardial infarction, unspecified (ICD-10) Surgical History (Updated 06/03/23 @ 20:36 by Diane Osullivan) H/O heart artery stent ?Z95.5 - Presence of coronary angioplasty implant and graft (ICD-10) Social History Smoking status: Never smoker Exam Narrative Exam Narrative: Nurses notes and vital signs reviewed and patient is not hypoxic. afebrile General: Well-appearing and in no apparent distress. Skin: Warm, dry, no pallor noted. Urticaria changes noted on the torso. Head: Normocephalic, atraumatic. Neck: Supple, non-tender. No cervical lymphadenopathy. No meningismus Eye: Pupils are equal, round and EOMI. No scleral icterus. Ears, Nose, Mouth, and Throat: TM are clear, no posterior oropharynx erythema or nasal mucosal hypertrophy, uvula is mid-line Oral mucosa is moist Cardiovascular: Regular Rate and Rhythm without murmur, gallop or rub. Respiratory: No accessory muscle use or respiratory distress. Lungs are clear to auscultation, no wheezing, rales or rhonchi Musculoskeletal: normal ROM, no calf or popliteal tenderness, no lower extremity edema/swelling GI: Abdomen is soft, non-distended. Normal bowel sounds. No tenderness to palpation. No rebound, guarding, or rigidity noted. Neurological: A&O x4. No cranial nerve dysfunction observed. No truncal ataxia. Moves all extremities. Sensation intact. Psychiatric: Cooperative and interactive. Normal mood and affect. Constitutional Vital Signs, click to edit/add: Last Vital Signs Temp 97.4 F L 09/24/23 21:33 Pulse 95 H 09/24/23 23:03 Resp 18 09/24/23 23:03 BP 125/65 09/24/23 23:03 Pulse Ox 94 L 09/24/23 23:03 O2 Del Method Room Air 09/24/23 21:33 Course Vital Signs Vital signs: Vital Signs Temperature 97.4 F L 09/24/23 21:33 Pulse Rate 100 H 09/24/23 21:33 Respiratory Rate 12 09/24/23 21:33 Blood Pressure 122/73 09/24/23 21:33 Pulse Oximetry 96 09/24/23 21:33 Oxygen Delivery Method Room Air 09/24/23 21:33 Temperature 97.4 F L 09/24/23 21:33 Pulse Rate 95 H 09/24/23 23:03 Respiratory Rate 18 09/24/23 23:03 Blood Pressure 125/65 09/24/23 23:03 Pulse Oximetry 94 L 09/24/23 23:03 Oxygen Delivery Method Room Air 09/24/23 21:33 Medical Decision Making MDM Narrative Medical decision making narrative: CXR and respiratory panel obtained. He was given IM Solumedrol and oral Benadryl for the hive reaction/urticaria. Lab ran respiratory panel twice and had analyzer error. i will not make the patient wait another hour for testing - I called and informed the lab not to charge the patient for the test. Patient's tested positive for Influenza - he likely has the same. He has a developing pneumonia in the left lung base - will start on Levaquin with first dose given in the ED tonight. Discharged home with prescription for more Levaquin and for bromfed syrup for the cough. ED return if he worsens. Lab Data Lab results reviewed: Yes I reviewed the patient's lab results Labs: Lab Results 09/24/23 Range/Units 21:52 POC Glucose 235 H (74-106) mg/dL Imaging Data Chest x-ray: Attestation: I have reviewed the pertinent imaging results. Radiologist's impression: ITS Impressions Chest X-Ray 09/24/23 21:36 IMPRESSION: Increased haziness of left lung base may suggest developing pneumonia. Electronically authenticated by: PABLO LOVE Date: 09/24/2023 22:16 Discharge Plan Discharge Chief Complaint: Upper Respiratory Infection Clinical Impression: LLL pneumonia, Influenza Patient Disposition: Home, Self-Care Time of Disposition Decision: 23:11 Prescriptions / Home Meds: New levofloxacin 750 mg tablet 750 mg PO DAILY 5 Days Qty: 5 0RF ekusfcvgmzsunxb-cdfhtluxb-QP [Bromfed DM] 2-30-10 mg/5 mL syrup 5 ml PO Q6H PRN (Reason: cough) Qty: 118 0RF No Action aspirin 81 mg tablet,chewable 1 tab PO QDAY atorvastatin 80 mg tablet 80 mg PO QDAY metformin 500 mg tablet 500 mg PO QDAY metoprolol succinate 25 mg tablet extended release 24 hr 25 mg PO QDAY testosterone cypionate 200 mg/mL oil 150 mg IM Q7D Brilinta 90 mg tablet 90 mg PO QDAY valsartan 40 mg tablet 40 mg PO QDAY Instructions: Influenza (ED), Community Acquired Pneumonia (ED) Stand Alone Forms: Portal Instructions Referrals: Yanick Fuller DO [Primary Care Provider] - 1 week
[2023-09-24 21:53] LABS: Glucometer 235 mg/dL (74-106)
--- NOTE | 2023-09-24 22:23 | PC.NURSE ---
Patient has red raised rash to trunk and extremities, no open areas or seeping noted. Patient denies any new medications, soaps, or any contact with any irritants.
[2023-09-24] MEDS: DIPHENHYDRAMINE HCL 25 MG CAPSULE PO (22:28)
[2023-09-24] MEDS: METHYLPREDNISOLONE SOD SUCC PF 125 MG/2 ML VIAL IM (22:28)
[2023-09-24 23:03] VITALS: BP 125/65; PULSE 95; RESP 18; O2SAT 94
[2023-09-24] MEDS: LEVOFLOXACIN 750 MG TABLET PO (23:44)
== END 2023-09-24 23:53 | disposition home or self-care (01) ==
PROVIDERS: Emergency Provider Emergency Medicine; PCP Internal Medicine
DX: J11.00 Influenza due to unidentified influenza virus with unspecified type of pneumonia (principal); E11.9 Type 2 diabetes mellitus without complications; I25.10 Atherosclerotic heart disease of native coronary artery without angina pectoris; I10 Essential (primary) hypertension; Z79.899 Other long term (current) drug therapy; Z79.82 Long term (current) use of aspirin; Z79.84 Long term (current) use of oral hypoglycemic drugs; I25.2 Old myocardial infarction; Z95.5 Presence of coronary angioplasty implant and graft
CPT/HCPCS: 0202U; 36415; 36416; 71045; 82948; 96372; 99285; J2930